=== PATIENT | female | born 1950 | race African-American/Black ===

== ENCOUNTER 2016-06-23 02:14 | Inpatient (IN) ==
[2016-06-23] MEDS ORDERED: ENOXAPARIN 100 MG/ML SYRINGE SUBCUT STA (02:25)
[2016-06-23] MEDS ORDERED: SODIUM CHLORIDE 0.9% 500 ML IV STA (02:25)
[2016-06-23] MEDS ORDERED: ONDANSETRON 4 MG/2 ML VIAL IV STA (02:25)
[2016-06-23] MEDS ORDERED: MORPHINE 2 MG/1 ML SYRINGE IV STA (02:25)
[2016-06-23] MEDS ORDERED: NITROGLYCERIN 2% OINT 1 INCH/GM PACK TOP STA (02:25)
[2016-06-23] MEDS ORDERED: ASPIRIN 325 MG TABLET PO STA (02:25)
[2016-06-23] MEDS ORDERED: ENOXAPARIN 100 MG/ML SYRINGE SUBCUT ONE (02:39)
[2016-06-23] MEDS ORDERED: MORPHINE 2 MG/1 ML SYRINGE ONE (02:39)
[2016-06-23] MEDS ORDERED: ONDANSETRON 4 MG/2 ML VIAL ONE (02:39)
[2016-06-23] MEDS ORDERED: ASPIRIN 325 MG TABLET ONE (02:39)
[2016-06-23] MEDS ORDERED: NITROGLYCERIN 2% OINT 1 INCH/GM PACK TOP ONE (02:39)
[2016-06-23 02:43] LABS: Basophils % 0.5 % (0.0-0.8); Eosinophils # 0.1 10*3/uL (0.0-0.87); Eosinophils % 2.6 % (0.00-10.9); Hematocrit 35.8 VOL% (35.7-47.0); Hemoglobin 10.9 GM/DL (12.0-16.0); Immature Granulocytes % 0.4 %; Immature Granulocytes Absolute 0.02 #; Lymphocytes # 2.2 10*3/uL (1.4-4.0); Lymphocytes % 40.6 % (21.3-54.2); Mean Corpuscular HGB Conc 30.4 GM/DL (32-36); Mean Corpuscular Hemoglobin 28 PG (27-34); Mean Platelet Volume 9.9 FL (9.6-12.0); Monocytes # 0.4 10*3/uL (0.11-0.8); Monocytes % 7.9 % (1.7-12.7); Neutrophils # 2.6 10*3/uL (1.4-7.4); Platelet Count 229 T/CUMM (130-400); Red Blood Count 3.89 MC/CUMM (3.8-5.5); Red Cell Distribution Width 12.6 % (9.3-17.3); White Blood Count 5.5 T/CUMM (4-12)
[2016-06-23 02:52] LABS: Partial Thromboplastin Time 22.2 SECS (0-40)
[2016-06-23 03:08] LABS: Calcium 9.1 MG/DL (8.5-10.1); Osmolality,Calculated 294.1 MOS/KG (273-304); Potassium 5.1 MMOL/L (3.5-5.1)
--- NOTE | 2016-06-23 03:51 | Emergency Department Note ---
Gaston Lynne Brittany, am scribing for, and in the presence of, Nehemias Carvalho MD 02:33. Deven Lynne Robert M, MD, personally performed the services described in this documentation, ascribed by Roxi Feldman in my presence, and it is both accurate and complete 351 . Arrival - Arrival Chief Complaint: Chest Pain ED Nursing Triage Note: PT ARRIVES VIA EMS WITH COMPLAINTS OF CHEST PAIN THAT HAS BEEN ONGOING SINCE SUNDAY. PT STATES THAT SHE WAS SEEN HERE FOR CHEST PAIN SUNDAY AND TOLD IT WAS GERD. STATES THAT THE PAIN RETURNED TONIGHT WHILE AT WORK. PT DENIES ANY N/V. STATES THAT SHE DOES FEEL SOB WITH THE PAIN. Mode of Arrival: Stretcher Limitations: No Limitations Source: Patient, RN Notes Reviewed Time Seen by Provider: 06/23/16 02:25 - History of Present Illness HPI Narrative: Patient is a 65 y/o black female presenting to the ED with c/o left sided chest pain that onset tonight. Patient reports that along with this chest pain she experienced some shortness of breath and at some point began to feel near syncopal. She does note a history of OK and chest pain that she has been experiencing tonight is similar to pain experienced with the previous OK. Patient reports that the only difference in this episode tonight is that she has never experienced the near syncope feeling with prior OK. 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 Patient in room is slurring her speech while giving the history. She has an oxygen saturation of 100% on room air. No other complaint/pain in the ED at this time. Allergies/Adverse Reactions: Allergies Allergy/AdvReac Type Severity Reaction Status Date / Time meperidine [From Demerol] Allergy Hallucinati Verified 06/18/16 12:36 ng promethazine [From Phenergan] Allergy Anxiety Verified 06/18/16 12:36 Home Medications: Home Medications Medication Instructions Recorded Confirmed Type Carvedilol [Coreg] 6.25 mg PO BID 09/16/15 06/23/16 History Clopidogrel [Plavix] 75 mg PO DAILY 09/16/15 06/23/16 History Exenatide [Byetta] 10 mcg SUBCUT BID 09/16/15 06/23/16 History Insulin Detemir [Levemir] 30 unit SUBCUT DAILY 09/16/15 06/23/16 History Isosorbide Dinitrate [Isordil] 40 mg PO BID 09/16/15 06/23/16 History Nitroglycerin Sl Tab [Nitrostat] 0.4 mg SL DAILY PRN 09/16/15 06/23/16 History Ranolazine [Ranexa] 1,000 mg PO BID 09/16/15 06/23/16 History Albuterol Inhaler [Proventil 2 puff INH Q6H PRN 03/29/16 06/23/16 History Inhaler] Aspirin EC Tab 325 mg PO DAILY 03/29/16 06/23/16 History Furosemide Tab [Lasix Tab] 40 mg PO DAILY PRN 03/29/16 06/23/16 History Gabapentin Cap/Tab [Neurontin 300 mg PO BEDTIME 03/29/16 06/23/16 History Cap/Tab] Lidocaine 5% Patch [Lidoderm 5% 1 patch TRANSDERM DAILY PRN 03/29/16 06/23/16 History Patch] Olmesartan/Hydrochlorothiazide 1 each PO DAILY 03/29/16 06/23/16 History [Benicar Hct 40-25 mg Tablet] Gabapentin 100 mg PO BID 06/18/16 06/23/16 History Metformin HCl 1,000 mg PO BID 06/18/16 06/23/16 History Metoclopramide Tab [Reglan Tab] 5 mg PO ACHS #40 tablet 06/18/16 06/23/16 Rx Pantoprazole Tab [Protonix Tab] 40 mg PO DAILY #30 tablet 06/18/16 06/23/16 Rx Prochlorperazine Tab [Compazine 10 mg PO QOTHER DAY PRN 06/18/16 06/23/16 History Tab] Ranitidine Tab [Zantac Tab] 150 mg PO BID 06/18/16 06/23/16 History Review of System - Review of System 12 point system: reviewed and no additional remarkable complaints except as stated - Review of System Constitutional: Absent: chills, diaphoresis, fever Eyes: Absent: vision change Head/Ears/Nose/Throat: Absent: nasal drainage, sore throat Respiratory: Present: respiratory distress Cardiovascular: Present: chest pain, syncope (near) Gastrointestinal: Absent: abdominal pain, nausea, vomiting, diarrhea, constipation Genitourinary female: Absent: dysuria, frequency, urgency Musculoskeletal: Absent: arm pain, back pain, leg pain, neck pain Skin: Absent: rash Neurological: Absent: headache Psychiatric: Absent: anxiety, depression Medical,Surgical,& Family Hx - Medical History Cardio: History of: Hypertension, OK Endocrine: History of: Diabetes Mellitus (IDDM), Dyslipidemia - Surgical History Cardiac Surgeries: Sugical HX of: Cardiac Catheterization Reproductive Surgeries: Surgical HX of;: Hysterectomy - Family History Family History: Reports;: Family Heart Disease, Family Stroke - Social History Smoking Status: Smoker, status unknown Frequency of Alcohol Use: None Type of Drug Use: None Exam Vital Signs: Vital Signs Temperature 97.9 F 06/23/16 02:14 Pulse Rate 55 L 06/23/16 03:48 Respiratory Rate 12 06/23/16 03:48 Blood Pressure 115/78 06/23/16 03:48 O2 Sat by Pulse Oximetry 100 06/23/16 03:48 - General General appearance: alert, in no apparent distress, other (slurred speech while giving history ) - Head Head exam: Present: atraumatic, normocephalic, normal inspection - Eye Eye exam: Present: normal appearance, PERRL, EOMI - ENT ENT exam: Present: normal exam, normal oropharynx - Neck Neck exam: Present: normal inspection, full ROM, trachea midline - Chest Chest inspection: Present: normal inspection, symmetric chest wall rise - Respiratory Respiratory exam: Present: normal lung sounds bilaterally, other (oxygen saturation 100% on room air). Absent: rales, rhonchi, wheezes - Cardiovascular Cardiovascular exam: Present: regular rate, normal rhythm, normal heart sounds. Absent: murmur, rubs, gallop - Abdominal Exam Abdominal exam: Present: soft, normal bowel sounds. Absent: distention, tenderness - Extremities Exam Extremities exam: Present: normal inspection - Back Exam Back exam: Present: normal inspection - Neurological Exam Neurological exam: Present: alert, oriented X3, CN II-XII intact. Absent: motor sensory deficit - Psychiatric Psychiatric exam: Present: normal affect - Skin Skin exam: Present: warm, dry Course - Consultations Consultation #1: Dr. Lopez will evaluate and admit the patient. Time: 04:06 Results - Labs CBC & BMP: 06/23/16 02:30 06/23/16 02:30 Lab Results: I have reviewed the patients labs Labs: Lab Results WBC 5.5 T/CUMM (4-12) 06/23/16 02:30 RBC 3.89 MC/CUMM (3.8-5.5) 06/23/16 02:30 Hgb 10.9 GM/DL (12.0-16.0) L 06/23/16 02:30 Hct 35.8 VOL% (35.7-47.0) 06/23/16 02:30 MCV 92.0 FL (87-102) 06/23/16 02:30 MCH 28 PG (27-34) 06/23/16 02:30 MCHC 30.4 GM/DL (32-36) L 06/23/16 02:30 RDW 12.6 % (9.3-17.3) 06/23/16 02:30 Plt Count 229 T/CUMM (130-400) 06/23/16 02:30 MPV 9.9 FL (9.6-12.0) 06/23/16 02:30 Neut % (Auto) 48.0 % (38.7-73.9) 06/23/16 02:30 Lymph % (Auto) 40.6 % (21.3-54.2) 06/23/16 02:30 [place] % (Auto) 7.9 % (1.7-12.7) 06/23/16 02:30 Eos % (Auto) 2.6 % (0.00-10.9) 06/23/16 02:30 Baso % (Auto) 0.5 % (0.0-0.8) 06/23/16 02:30 Neut # (Auto) 2.6 10*3/uL (1.4-7.4) 06/23/16 02:30 Lymph # (Auto) 2.2 10*3/uL (1.4-4.0) 06/23/16 02:30 [place] # (Auto) 0.4 10*3/uL (0.11-0.8) 06/23/16 02:30 Eos # (Auto) 0.1 10*3/uL (0.0-0.87) 06/23/16 02:30 Baso # (Auto) 0.0 10*3/uL (0.0-0.2) 06/23/16 02:30 Immature Gran % 0.4 % 04/07/17 02:30 Nucleated RBC % 0.0 /100WBC 06/23/16 02:30 Immature Gran # 0.02 # 06/23/16 02:30 Nucleated RBCs # 0.00 10*3/uL 06/23/16 02:30 INR 1.0 06/23/16 02:30 PT Patient/Control Mix 11.0 SECS 06/23/16 02:30 Circ Anticoag PTT 22.2 SECS (0-40) 06/23/16 02:30 Sodium 142 MMOL/L (136-145) 06/23/16 02:30 Potassium 5.1 MMOL/L (3.5-5.1) 06/23/16 02:30 Chloride 108 MMOL/L (98-107) H 06/23/16 02:30 Carbon Dioxide 28 MMOL/L (21-32) 06/23/16 02:30 Anion Gap 11.1 MMOL/L (5.0-15.0) 06/23/16 02:30 BUN 26 MG/DL (7-18) H 06/23/16 02:30 Creatinine 1.70 MG/DL (0.55-1.02) H 06/23/16 02:30 GFR Calculation 44 ML/MIN 06/23/16 02:30 BUN/Creatinine Ratio 15.00 RATIO (6.00-20.00) 06/23/16 02:30 Glucose 220 MG/DL (74-106) H 06/23/16 02:30 Calculated Osmolality 294.1 MOS/KG (273-304) 06/23/16 02:30 Calcium 9.1 MG/DL (8.5-10.1) 06/23/16 02:30 Troponin I < 0.015 NG/ML (0.00-0.045) 06/23/16 02:30 Lipase 300.0 U/L (73-393) 06/23/16 02:30 - EKG EKG results: interpreted by SONJA AVILES, sinus rhythm Disposition Clinical Impression: Chest pain, Diabetes, Hypertension, History of OK (myocardial infarction) Case discussed with: patient, patient's family Disposition: Still a Patient Condition: Stable Time of Disposition: 04:06
[2016-06-23] MEDS ORDERED: DEXTROSE 50% 25 GM/50 ML VIAL IV PRN ×2 (04:07→13:57)
[2016-06-23] MEDS ORDERED: DOCUSATE SODIUM 100 MG CAPSULE PO PRN (04:07)
[2016-06-23] MEDS ORDERED: ONDANSETRON 4 MG/2 ML VIAL IV PRN (04:07)
[2016-06-23] MEDS ORDERED: MAGNESIUM SULF RIDER 2 GM in PREMIX 1 EACH IV PRN ×2 (04:07→11:49)
[2016-06-23] MEDS ORDERED: MORPHINE 2 MG/1 ML SYRINGE IV PRN (04:07)
[2016-06-23] MEDS ORDERED: MAGNESIUM SULF RIDER 4 GM in PREMIX 1 EACH IV PRN (04:07)
[2016-06-23] MEDS ORDERED: GLUCAGON 1 MG VIAL IM PRN ×2 (04:07→13:57)
[2016-06-23] MEDS ORDERED: POTASSIUM CHLORIDE 20 MEQ TABLET PO PRN (04:07)
--- NOTE | 2016-06-23 04:11 | EKG Report ---
Stationary ECG Study 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
--- NOTE | 2016-06-23 07:29 | XRay Report ---
Referring Physician: Nehemias Carvalho Exam: XR chest 1V portable Date: June 23, 2016 at 2:30 AM Reason: Chest pain Comparison: Chest one view portable June 18, 2016 Findings: The cardiac silhouette is again mildly enlarged, and there is mild elevation of the right hemidiaphragm. The interstitial markings are prominent bilaterally. This could be related to the poor inspiratory depth or minimal pulmonary edema. There is also minimal atelectasis at the right lung base. No definite pleural fluid is identified. No acute osseous process is seen. Impression: 1. Mild cardiomegaly. 2. The interstitial markings are prominent bilaterally. This could be related to the poor inspiratory depth or minimal pulmonary edema. There is also minimal atelectasis at the right lung base. PROCEDURE INTERPRETED AT [facility] DEPARTMENT OF RADIOLOGY Final Report Signed by: Dr. Eagle Vidal
[2016-06-23 08:39] LABS: Troponin I Only < 0.015 NG/ML (0.00-0.045)
--- NOTE | 2016-06-23 08:39 | Cardiology History & Physical ---
Assessment and Plan - Time spent with patient Time spent with patient: Greater than 30 minutes (due to assessment, plan, and documentation) (1) Chest pain Status: Acute Assessment and plan: 65 y/o BF presents c c/o SOB and chest discomfort. Reports symptoms feel similar to previous RI symptoms. At that time, she did have atypical features of CP. Hx of severe diffuse CAD with multiple aneurysms, not felt to be a surgical candidate. Also has hx of HTN, DM, HLD, MARY KAY, former smoker, obesity. She is already on medical therapy for her CAD to include beta landon, Ranexa, ARB, nitrates, ASA. Discussed with Dr. Garcia and Dr. Lopez. We will not proceed with stress testing at this time given her history of CAD. Will try to maximize medical therapy. Dr. Lopez will review previous films to evaluate for any potential intervention. -Continue home medications. She is currently on the maximum dose for Ranexa and Isordil. Heart rate will not allow for further increase of beta landon at this time. -Will obtain echocardiogram. -Continue to cycle cardiac biomarkers and EKGs and monitor for changes. -NPO for now until pharmacy informatics manager is able to review old films. -Continue CPAP nightly. -Monitor CBC, BMP, Mg daily. -Check D-dimer and lipid profile today. Patient reports a previous statin intolerance. -Will await further recommendations from Dr. Garcia & Dr. Lopez. Current Visit: Yes (2) Shortness of breath Status: Acute Current Visit: Yes (3) CAD (coronary artery disease) Status: Chronic Current Visit: Yes (4) Dyslipidemia Status: Chronic Current Visit: Yes (5) GERD (gastroesophageal reflux disease) Status: Chronic Current Visit: Yes (6) Obesity Status: Chronic Current Visit: Yes (7) Former smoker Status: Chronic Current Visit: Yes (8) History of RI (myocardial infarction) Status: Chronic Current Visit: Yes (9) Diabetes Status: Chronic Current Visit: Yes (10) Obstructive sleep apnea Status: Chronic Current Visit: Yes History of Present Illness Chief complaint: chest pain History of present illness: SKATE HOP: DR. SIMMONS Ms. Wilkinson is a 65 year old female who is followed by Dr. Simmons. She has a history of severe diffuse coronary artery disease, hypertension, dyslipidemia, diabetes mellitus, obstructive sleep apnea, former tobacco use, gastroesophageal reflux disease, and obesity. She previously had non-Q wave RI on 08/21/09 and underwent angiographic thrombectomy. She was evaluated by Dr. Joya following her heart catheterization on 01/16/13 and failed to be a candidate for surgery at that time. Her last heart catheterization was 05/21/14 and revealed severe diffuse CAD with multiple aneurysmal segments with ejection fraction 55%. Medical therapy was recommended at that time. 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 She presented to the emergency department shortly after midnight with complaints of chest discomfort and shortness of breath that began after she arrived at work, around 2300. She tells me she had begun making rounds when she began to feel like she had indigestion and took some Mylanta. The feeling did not pass, so she took a second dose. Her discomfort intensified and she tells me that she began to feel as if she couldn't take a full breath. She admits at this point, she became quite anxious and called her to come and take her to the hospital. Shortly after speaking to her , she changed her mind and the ambulance was called. She tells me upon being picked up by the ambulance, her SpO2 was 98% but she still felt as if she couldn't breathe. She rates her discomfort as a 10/10, but after administration of Aspirin and Morphine, it went to an 8/10 and she is now currently pain free. Her discomfort was midsternal but did not radiate to her neck, jaw, or arms. She can identify no other aggravating or alleviating factors. She does state that she feels similar to how she did when she had her previous RI. She still reports feeling as if she cannot take a deep breath. She also reports lightheadedness and a near syncopal sensation. She denies palpitations, dizziness, diaphoresis, nausea , or vomiting. Ms. Wilkinson reports she has felt more fatigued in the past several weeks, but attributed that to not being compliant with her CPAP machine, which she has started back using. She does report an isolated incidence of feeling "hot" in [place] this past Sunday. This was accompanied by a feeling of "smothering" and SOB which eventually passed. She reports prior to these two incidences, she has been able to perform her duties at home and at work without difficulty. Her EKG is unremarkable. Her first set of cardiac biomarkers was negative. BNP 33. Creatinine 1.7 with GFR 44; this appears to be around her baseline recently. She is not currently on statin therapy. She reports she was previously placed on statin therapy and had severe myalgias and stopped this medication on her own. We will recheck lipid profile. May consider use of low dose crestor if unable to tolerate other statins. Will further discuss with Dr. Garcia and Dr. Lopez and await their recommendations. Home Medications Medication Instructions Recorded Confirmed Type Carvedilol [Coreg] 6.25 mg PO BID 09/16/15 06/23/16 History Clopidogrel [Plavix] 75 mg PO DAILY 09/16/15 06/23/16 History Exenatide [Byetta] 10 mcg SUBCUT BID 09/16/15 06/23/16 History Insulin Detemir [Levemir] 30 unit SUBCUT DAILY 09/16/15 06/23/16 History Isosorbide Dinitrate [Isordil] 40 mg PO BID 09/16/15 06/23/16 History Nitroglycerin Sl Tab [Nitrostat] 0.4 mg SL DAILY PRN 09/16/15 06/23/16 History Ranolazine [Ranexa] 1,000 mg PO BID 09/16/15 06/23/16 History Albuterol Inhaler [Proventil 2 puff INH Q6H PRN 03/29/16 06/23/16 History Inhaler] Aspirin EC Tab 325 mg PO DAILY 03/29/16 06/23/16 History Furosemide Tab [Lasix Tab] 40 mg PO DAILY PRN 03/29/16 06/23/16 History Gabapentin Cap/Tab [Neurontin 300 mg PO BEDTIME 03/29/16 06/23/16 History Cap/Tab] Lidocaine 5% Patch [Lidoderm 5% 1 patch TRANSDERM DAILY PRN 03/29/16 06/23/16 History Patch] Olmesartan/Hydrochlorothiazide 1 each PO DAILY 03/29/16 06/23/16 History [Benicar Hct 40-25 mg Tablet] Gabapentin 100 mg PO BID 06/18/16 06/23/16 History Metformin HCl 1,000 mg PO BID 06/18/16 06/23/16 History Metoclopramide Tab [Reglan Tab] 5 mg PO ACHS #40 tablet 06/18/16 06/23/16 Rx Pantoprazole Tab [Protonix Tab] 40 mg PO DAILY #30 tablet 06/18/16 06/23/16 Rx Prochlorperazine Tab [Compazine 10 mg PO QOTHER DAY PRN 06/18/16 06/23/16 History Tab] Ranitidine Tab [Zantac Tab] 150 mg PO BID 06/18/16 06/23/16 History Allergies Allergy/AdvReac Type Severity Reaction Status Date / Time meperidine [From Demerol] Allergy Hallucinati Verified 06/18/16 12:36 ng promethazine [From Phenergan] Allergy Anxiety Verified 06/18/16 12:36 Review of systems: - Constitutional: Present: fatigue, As per HPI. Absent: anorexia, chills, daytime sleepiness, excessive sweating, fever(s), frequent falls, headache(s), increased appetite, lethargy, malaise, night sweats, stops breathing during sleep, weakness, weight gain, weight loss. - EENT Eyes: Present: As per HPI. Absent: blurry vision, diplopia, loss of vision Ears: Present: decreased hearing, As per HPI. Absent: ear discharge, ear pain Nose, mouth and throat: Present: As per HPI. Absent: dysphagia, epistaxis, headache(s), hoarseness, lip swelling, nasal congestion, neck mass, neck pain, sinus pressure, sore throat, throat swelling, tongue swelling, vertigo - Cardiovascular: Present: chest pain at rest, chest pain with activity, dyspnea , dyspnea on exertion, lightheadedness, as per HPI. Absent: edema, claudication , diaphoresis, radiating jaw, neck or arm pain, orthopnea, palpitations, PND - Respiratory: Present: dyspnea, dyspnea on exertion, as per HPI. Absent: cough , hemoptysis, wheezing, snoring, pain on inspiration - Gastrointestinal: Present:constipation, heartburn, As per HPI. Absent: abdominal pain, bloating, change in bowel habits, diarrhea, hematemesis, hematochezia, loose stools, melena, nausea, vomiting - Genitourinary: Present: As per HPI. Absent: difficulty urinating, dysuria, flank pain, hematuria, nocturia, urinary frequency, urinary incontinence - Musculoskeletal: Present: As per HPI. Absent: arthralgias, back pain, joint swelling, limited range of motion, muscle cramps, muscle weakness, myalgias - Neurological: Present: near syncope, As per HPI. Absent: abnormal gait, abnormal speech, behavioral changes, confusion, convulsions, disequilibrium, dizziness, focal weakness, frequent falls, headache(s), memory loss, numbness, paresthesias, radicular pain, tremor(s) - Psychiatric: Present: anxiety, As per HPI. Absent: confusion, depression, panic attacks - Endocrine: Present: fatigue, As per HPI. Absent: cold intolerance, heat intolerance, polydipsia, polyphagia - Hematologic/Lymphatic: Present: As per HPI. Absent: easy bleeding, easy bruising, lymphadenopathy Medical,Surgical,& Family Hx - Medical History Cardio: History of: CAD (severe diffuse CAD), Hypertension, RI Endocrine: History of: Diabetes Mellitus (IDDM), Dyslipidemia - Surgical History Cardiac Surgeries: Sugical HX of: Cardiac Catheterization Reproductive Surgeries: Surgical HX of;: Hysterectomy - Family History Family History: Reports;: Family Heart Disease, Family Stroke - Social History Smoking Status: Former smoker (quit in 2001) Frequency of Alcohol Use: None Type of Drug Use: None Marital Status: Lives With:: Spouse Functional capacity: independent ambulation Cardiology Physical Exam - Constitutional Vitals: Vital Signs Temp Pulse Resp BP Pulse Ox 97.3 F L 63 20 139/99 98 06/23/16 05:18 06/23/16 05:18 06/23/16 05:18 06/23/16 05:18 06/23/16 05:18 Intake and Output 06/22/16 06/23/16 06/23/16 22:59 06:59 14:59 Other: Weight 220 lb Exam: General appearance: Pleasant and cooperative. Normal weight, no acute distress. - Head Head exam: Present: normal inspection, normocephalic, atraumatic. Absent: hematoma, laceration - Eye Eye exam: Present: EOMI. Absent: conjunctival injection, nystagmus, periorbital swelling, scleral icterus, laceration to eyelids Pupils: Present: PERRL. Absent: constricted, dilated, fixed, irregular, unequal - ENT ENT exam: Present: normal exam, normal external ear exam - Neck Neck exam: Present: normal inspection. Absent: lymphadenopathy, meningismus, tenderness, thyromegaly - Respiratory Respiratory exam: Present: clear to auscultation bilaterally. Absent: accessory muscle use, chest wall tenderness, no rales, rhonchi, or wheezes. O2 via NBP. - Cardiovascular Cardiovascular exam: Present: regular rate and rhythm. Absent: carotid bruit, gallop, JVD, rubs, murmur - GI/Abdominal GI/Abdominal exam: Present: normal bowel sounds, soft. Absent: distended, firm , guarding, hernia, mass, tenderness, rebound. - Extremities Exam Extremities exam: Present: normal inspection, normal capillary refill. Upper extremity pulses 2+. Lower extremity pulses 2+. Absent: calf tenderness, edema - Back Exam Back exam: Present: normal inspection. Absent: muscle spasm, vertebral tenderness - Neurological Exam Neurological exam: Present: alert, oriented X3, grossly intact without resting or essential tremor - Psychiatric Psychiatric exam: Present: normal affect, normal mood - Skin Skin exam: Present: normal color, warm, dry, intact. Absent: cyanosis, diaphoretic, rash, urticaria Result/EKG - Labs CBC & BMP: 06/23/16 02:30 06/23/16 02:30 Lab Results: I have reviewed the past 24 hour labs - EKG EKG results: interpreted by me, sinus rhythm
[2016-06-23] MEDS ORDERED: ALBUTEROL 2.5 MG/3 ML NEB RESP TX PRN (09:06)
[2016-06-23] MEDS ORDERED: NITROGLYCERIN SL 0.4 MG TABLET SL PRN (09:06)
[2016-06-23] MEDS ORDERED: PROCHLORPERAZINE 10 MG TABLET PO PRN (09:06)
[2016-06-23 10:16] LABS: Risk Ratio 2.61
[2016-06-23 10:44] LABS: Free T4 (Free Thyroxine) 1.15 NG/DL (0.76-1.46); Thyroid Stimulating Hormone 2.75 uIU/ml (0.358-3.74)
--- NOTE | 2016-06-23 10:46 | EKG Report ---
Stationary ECG Study [facility] Test Date: 06/23/2016 7:39:50 AM Pat Name: PERLA TERRAZAS Department: Room: 264 Gender: F Provider Education Specialist: : 1950 Requested by: Nehemias Carvalho Order Number: [id number] Reading MD: SORCATES HASSAN Intervals [place] Rate: 58 P: 49 [place]: 186 QRS: -15 QRSD: 105 T: 44 QT: 429 QTc: 425 Interpretive Statements SINUS RHYTHM Electronically Signed On 06-26-16 14:37:41 CDT by SOCRATES HASSAN [id number]
[2016-06-23] MEDS ORDERED: diphenhydrAMINE CAP 25 MG CAPSULE PO ONE (11:49)
[2016-06-23] MEDS ORDERED: POTASSIUM CHLORIDE RIDER 10 MEQ in PREMIX 1 EACH IV PRN (11:49)
[2016-06-23] MEDS ORDERED: SODIUM CHLORIDE 0.9% 1,000 ML IV SCH ×2 (11:49→14:13)
[2016-06-23] MEDS ORDERED: DIAZEPAM 5 MG TABLET PO ONE (11:49)
--- NOTE | 2016-06-23 12:17 | EKG Report ---
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
[2016-06-23] MEDS: OLMESARTAN 20 MG TABLET PO SCH (12:23)
[2016-06-23] MEDS: RANOLAZINE 500 MG TABLET PO SCH ×2 (12:23→21:59)
[2016-06-23] MEDS: CLOPIDOGREL 75 MG TABLET PO SCH (12:24)
[2016-06-23] MEDS: GABAPENTIN 100 MG CAPSULE PO SCH ×3 (12:24→22:00)
[2016-06-23] MEDS: hydroCHLOROthiazide 25 MG TABLET PO SCH (12:25)
[2016-06-23] MEDS: CARVEDILOL 6.25 MG TABLET PO SCH ×2 (12:25→21:59)
[2016-06-23] MEDS: ASPIRIN EC 325 MG TABLET PO SCH (12:25)
[2016-06-23] MEDS: PANTOPRAZOLE 40 MG TABLET PO SCH (12:25)
[2016-06-23] MEDS: FAMOTIDINE 20 MG TABLET PO SCH ×2 (12:26→22:00)
[2016-06-23] MEDS: METOCLOPRAMIDE 5 MG TABLET PO SCH ×4 (12:26→22:00)
[2016-06-23] MEDS ORDERED: LIDOCAINE 1% 20 ML VIAL ONE (12:47)
--- NOTE | 2016-06-23 12:55 | History and Physical Update ---
Sedation H&P Update - History and Physical H&P was reviewed, the patient examined and there: are no changes in the patients condition since last H&P was completed. - Dictation Physical: refer to H&P completed by admitting physician - Physical Exam Mental Status: alert and oriented Heart: regular rate and rhythm Lung: clear to auscultation Abdomen: within normal limits Vitals: within normal limits History and Physical Changes: Both femoral arteries are 4+. Foot arteries are 3+. - Sedation Plan for Sedation: minimal Patient Consent: Procedure disscussed with patient and patinet has consented., Risks and benefits were discussed with patient,including infection,, bleeding, injury to surrounding structures, seizure, temporary nerve, Patient understands and accepts potential risks/benefits and agrees to (Left heart cath and possible PTCA or stent were discussed with the patient. The risk of the procedure include but are not limited to a small risk of injury to the vessel, abnormal heart rhythm, stroke, heart attack, need for emergent surgery, contrast reaction, restenosis, or . The patient voices understanding, agrees with the plan, and desires to proceed with the heart catheterization.), proceed. ASA Class: II Airway Assessment: Class II: Soft palate, uvula, fauces visible
[2016-06-23] MEDS ORDERED: HYDROmorphone 2 MG/1 ML VIAL ONE (13:00)
[2016-06-23] MEDS ORDERED: MIDAZOLAM 2 MG/2 ML VIAL ONE (13:02)
[2016-06-23] MEDS ORDERED: HEPARIN 5,000 UNIT/1 ML VIAL ONE (13:03)
[2016-06-23 13:25] LABS: Troponin I Only < 0.015 NG/ML (0.00-0.045)
--- NOTE | 2016-06-23 14:12 | Cardiology Operative Report ---
Date of Procedure:: 06/23/16 Post-op diagnosis: same (65-year-old woman with known aneurysmal coronary disease. She is diabetic. She presents with midline chest pain suggestive of unstable angina. She is referred for diagnostic catheterization and possible intervention.) Procedure: Date of procedure: 06/23/16 Procedure Preformed: Left heart cath Coronary angiography Left ventriculography Angiogram of the right femoral artery Angio-Seal of the right femoral artery-successful Surgeon / Physician: Stef Lopez Animal Surgeon: Fadia Landry Post-op diagnosis: same (65-year-old woman with known aneurysmal coronary disease. She is diabetic. She presents with midline chest pain suggestive of unstable angina. She is referred for diagnostic catheterization and possible intervention.) procedure: The patient was prepped and draped in usual manner. Entered the right femoral artery via the Seldinger technique. I used a sheath and then used a JL4 and engaged left coronary. Multiple views were taken. I then exchanged for a JR4. Multiple views of the right coronary were taken. I then exchanged for an angled pigtail. I crossed the valve. Left ventricular end-diastolic pressures measured. Left ventriculography was done. Left ventricle pullback was done. The catheters were then removed from the patient. Please see the cath data sheets for the details of catheters used. Complications: None Hemodynamic data: LVEDP was 35-40 mmHg. Angiographic data: The left main coronary was large, aneurysmal, and had minimal luminal irregularities. The left anterior descending artery was large, aneurysmal, and there were multiple moderate areas of narrowing. The distal LAD had significant, greater than 70% to 80% narrowing. However at this point it was a small vessel. s. The left circumflex system was moderate to large, aneurysmal vessel with moderate disease. In the distal portion of an obtuse marginal there was significant disease The right coronary artery was large in size, dominant vessel with the PDA. It was aneurysmal. The distal posterior lateral branch was small but had significant, 78% narrowing. It was too small to intervene upon. EDWARDS left ventriculography revealed moderate global global/regional left ventricular systolic dysfunction. Overall ejection fraction was about 40 %. There is no significant mitral regurgitation. Angiogram of the right femoral artery revealed the puncture site to be in a large vessel, above the bifurcation. It was suitable for Angio-Seal. Findings: Impression: Significant, obstructive coronary disease involving distal obtuse marginal circumflex, the distal LAD, and the distal right coronary artery---in these areas, the vessel was too small to intervene upon-probably 1-1.5 mm diameter vessels Moderate disease in other vessels. Aneurysmal disease throughout all 3 vessels-it makes me think of Kawasaki's disease in the pediatric age group-made this is an adult form of this disease-? A proximal diagonal had the next most severe lesion--this lesion it appeared to be 70 or 80% but the diameter of the residual vessel was probably 1 1/2 mm because there is aneurysmal disease around that lesion-thought to not be a flow- limiting lesion Moderate global left ventricular systolic dysfunction. Overall left ventricular ejection fraction about 40%. Severe elevation of LVEDP-35-40 mmHg, this was measured twice, even after receiving the transducer, to make sure it was accurate Angiogram the right coronary-by follow-through from the LV gram Angio-Seal right femoral artery-successful Plan/recommendations: The patient will have risk factors optimized. Based on his angiogram, fixed, obstructive disease is distal. It could be causing her symptoms. There also could be a GI cause could be related to the high LVEDP. I will defer to Dr. Linder about treatment. However, one could plan will be to treat for all 3. The patient is on Plavix and aspirin. Rate is slow. I suspect she is on a beta-landon. Her creatinine is about 1.7. If she could tolerate it, she could be on ARB or FREDERIC inhibitor and possibly spironolactone, it might help the high LVEDP. Also, judicious use of a diuretic might help. The possibility that the patient has sleep apnea contributing to symptoms could be considered. The patient will be on antiplatelet medications to include aspirin indefinitely and Plavix . Follow-up will be scheduled. Addenda: I saw the patient post-cath. the groin puncture site and distal pulse are stable. vital signs are stable and the patient will be observed closely overnight. Specimens: none sent Estimated blood loss: minimal Condition: stable Anesthesia: local, conscious sedation Disposition: floor Additional CC's: Devan Simmons Anesthesia: local, minimal conscious sedation Surgeon / Physician: Stef Lopez Animal Surgeon: other Estimated blood loss: minimal Specimens: none sent Condition: stable Disposition: floor
[2016-06-23] MEDS: INSULIN REGULAR 100 UNIT/ML SUBCUT SCH ×2 (16:35→22:01)
[2016-06-23 21:13] LABS: Troponin I Only < 0.015 NG/ML (0.00-0.045)
[2016-06-23] MEDS: ISOSORBIDE DINITRATE SR 40 MG TABLET PO SCH (21:59)
[2016-06-23] MEDS: GABAPENTIN 300 MG CAPSULE PO SCH (22:00)
[2016-06-24 05:58] LABS: Basophils % 0.5 % (0.0-0.8); Eosinophils # 0.2 10*3/uL (0.0-0.87); Eosinophils % 4.9 % (0.00-10.9); Hematocrit 32.5 VOL% (35.7-47.0); Hemoglobin 10.3 GM/DL (12.0-16.0); Immature Granulocytes % 0.2 %; Immature Granulocytes Absolute 0.01 #; Lymphocytes % 49.9 % (21.3-54.2); Mean Corpuscular HGB Conc 31.7 GM/DL (32-36); Mean Corpuscular Hemoglobin 29 PG (27-34); Mean Corpuscular Volume 90.3 FL (87-102); Mean Platelet Volume 10.2 FL (9.6-12.0); Monocytes # 0.4 10*3/uL (0.11-0.8); Monocytes % 10.6 % (1.7-12.7); Neutrophils # 1.4 10*3/uL (1.4-7.4); Neutrophils % 33.9 % (38.7-73.9); Platelet Count 219 T/CUMM (130-400); Red Cell Distribution Width 12.5 % (9.3-17.3); White Blood Count 4.1 T/CUMM (4-12)
[2016-06-24 06:26] LABS: Calcium 8.6 MG/DL (8.5-10.1); Magnesium 2.2 MG/DL (1.8-2.4); Osmolality,Calculated 286.5 MOS/KG (273-304); Potassium 4.9 MMOL/L (3.5-5.1)
[2016-06-24 06:51] LABS: Eosinophils 4 % (0-10); Hypochromasia 1+; Lymphocytes 53 % (20-55); Microcytosis 1+; Platelet Estimate Adequate; Segmented Neutrophils 33 % (50-85); Total Cells Counted 100
--- NOTE | 2016-06-24 07:17 | EKG Report ---
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
[2016-06-24] MEDS: METOCLOPRAMIDE 5 MG TABLET PO SCH ×4 (07:35→21:51)
[2016-06-24] MEDS ORDERED: diphenhydrAMINE CAP 50 MG CAPSULE PO ONE (08:38)
[2016-06-24] MEDS: hydroCHLOROthiazide 25 MG TABLET PO SCH (09:14)
[2016-06-24] MEDS: ASPIRIN EC 325 MG TABLET PO SCH (09:16)
[2016-06-24] MEDS: OLMESARTAN 20 MG TABLET PO SCH (09:17)
[2016-06-24] MEDS: CLOPIDOGREL 75 MG TABLET PO SCH (09:17)
[2016-06-24] MEDS: CARVEDILOL 6.25 MG TABLET PO SCH ×2 (09:18→21:50)
[2016-06-24] MEDS: RANOLAZINE 500 MG TABLET PO SCH ×2 (09:18→21:50)
[2016-06-24] MEDS: PANTOPRAZOLE 40 MG TABLET PO SCH (09:18)
[2016-06-24] MEDS: ISOSORBIDE DINITRATE SR 40 MG TABLET PO SCH ×2 (09:21→21:50)
[2016-06-24] MEDS: INSULIN REGULAR 100 UNIT/ML SUBCUT SCH ×4 (09:25→21:54)
[2016-06-24] MEDS: FAMOTIDINE 20 MG TABLET PO SCH ×3 (09:26→21:54)
[2016-06-24] MEDS: INSULIN GLARGINE 100 UNIT/ML SUBCUT SCH (09:26)
[2016-06-24] MEDS: GABAPENTIN 100 MG CAPSULE PO SCH ×2 (09:26→21:50)
[2016-06-24] MEDS ORDERED: FAMOTIDINE 20 MG TABLET PO ONE (11:57)
[2016-06-24] MEDS ORDERED: diphenhydrAMINE CAP 50 MG CAPSULE PO SCH (13:00)
--- NOTE | 2016-06-24 15:56 | Event Note ---
Called to see the patient because of itching and maculopapular rash on her back and her anterior body. It appears to be a contrast reaction. Benadryl 50 mg p.o. now and 4 times daily has been given. It is helped the itching. This is likely be self-limited. If it bothers her more we can give steroids. At this point, it is mild enough that I would not give it because of the side effects of the steroids. I did discuss with the patient and her that she should be considered allergic to contrast [although it could be something else ] , and should be premedicated prior to any future exposure of contrast. The above was discussed with the patient and her . They voiced understanding and agree with the plan.
--- NOTE | 2016-06-24 16:09 | Cardiology Progress Note ---
Assessment and Plan - Time spent with patient Time spent with patient: Greater than 30 minutes (1) Chest pain Status: Acute Assessment and plan: From the heart cath, her chest pain could be from distal, small vessel CAD, high LVEDP, or it could be GI related Plan/recommendation: Cautiously add a low-dose of FREDERIC inhibitor, Capoten 6.25 mg p.o. twice daily Watch renal function and potassium with this FREDERIC inhibitor Cautiously add a low-dose of spironolactone, 6.25 mg p.o. now and twice daily Cautiously add low-dose of furosemide, 20 mg p.o. now and daily Treat for presumed contrast reaction-Benadryl 50 mg p.o. now and 4 times daily as needed for itching or rash --it seems to be mild-- is likely be self- limited. If it bothers her more we can give steroids. At this point, it is mild enough that I would not give it because of the side effects of the steroids. I did discuss with the patient and her that she should be considered allergic to contrast [although it could be something else ], and should be premedicated prior to any future exposure of contrast. The above was discussed with the patient and her . They voiced understanding and agree with the plan. Current Visit: Yes (2) Shortness of breath Status: Acute Current Visit: Yes (3) CAD (coronary artery disease) Status: Chronic Current Visit: Yes (4) Diabetes Status: Chronic Current Visit: Yes (5) Dyslipidemia Status: Chronic Current Visit: Yes (6) Former smoker Status: Chronic Current Visit: Yes (7) GERD (gastroesophageal reflux disease) Status: Chronic Current Visit: Yes (8) Obesity Status: Chronic Current Visit: Yes (9) Obstructive sleep apnea Status: Chronic Current Visit: Yes (10) Systolic dysfunction, left ventricle Problem details: LVEF about 40% with mild LV enlargement on 06/24/15 at cath Status: Acute Current Visit: Yes (11) Left ventricular diastolic dysfunction Problem details: LVEDP is about 35-40 at heart cath of 06/24/15 Status: Acute Current Visit: Yes Cardiology - PN: Subj Interval history: Called to see the patient because of itching and maculopapular rash on her back and her anterior body. It appears to be a contrast reaction. Benadryl 50 mg p.o. now and 4 times daily has been given. It is helped the itching. No more chest pain Exam (Progress Note) - Constitutional Vitals: Period Temp Pulse Resp BP Sys/Dorado Pulse Ox Last 24 Hr 97.3 F-98.6 F 59-67 16-18 124-184/76-109 98-100 Exam: HEENT: Pupils equal, reactive to light and accommodation Neck: NoJVD or bruit Lungs clear to auscultation Heart: Regular rhythm rate with normal S1 and S2. Apical S4 Abdomen: No hepatosplenomegaly Spine/extremities: No clubbing, cyanosis, or edema Neuro: Nonfocal Psych: No depression or anxiety Right groin puncture site has some bruising. Distal pulses normal. Result/EKG - Labs CBC & BMP: 06/24/16 05:13 06/24/16 05:13 Lab Results: I have reviewed the past 24 hour labs Labs: Laboratory Results - last 24 hr 06/23/16 06/23/16 06/23/16 16:20 19:53 20:13 WBC RBC Hgb Hct MCV MCH MCHC RDW Plt Count MPV Neut % (Auto) Lymph % (Auto) Harper % (Auto) Eos % (Auto) Baso % (Auto) Neut # (Auto) Lymph # (Auto) Harper # (Auto) Eos # (Auto) Baso # (Auto) Total Counted Immature Gran % Nucleated RBC % Immature Gran # Segmented Neutrophils Lymphocytes Monocytes Eosinophils Basophils Nucleated RBCs # Platelet Estimate Hypochromasia Microcytosis Sodium Potassium Chloride Carbon Dioxide Anion Gap BUN Creatinine GFR Calculation BUN/Creatinine Ratio Glucose POC Glucose 95 227 H Calculated Osmolality Calcium Magnesium Total Creatine Kinase 99 D CK-MB (CK-2) < 1.0 Troponin I < 0.015 06/24/16 06/24/16 06/24/16 05:13 05:13 07:18 WBC 4.1 RBC 3.60 L Hgb 10.3 L Hct 32.5 L MCV 90.3 MCH 29 MCHC 31.7 L RDW 12.5 Plt Count 219 MPV 10.2 Neut % (Auto) 33.9 L Lymph % (Auto) 49.9 Harper % (Auto) 10.6 Eos % (Auto) 4.9 Baso % (Auto) 0.5 Neut # (Auto) 1.4 Lymph # (Auto) 2.0 Harper # (Auto) 0.4 Eos # (Auto) 0.2 Baso # (Auto) 0.0 Total Counted 100 Immature Gran % 0.2 Nucleated RBC % 0.0 Immature Gran # 0.01 Segmented Neutrophils 33 L Lymphocytes 53 Monocytes 9 Eosinophils 4 Basophils 1.0 H Nucleated RBCs # 0.00 Platelet Estimate Adequate Hypochromasia 1+ Microcytosis 1+ Sodium 139 Potassium 4.9 Chloride 105 Carbon Dioxide 28 Anion Gap 10.9 BUN 22 H Creatinine 1.40 H GFR Calculation 55 BUN/Creatinine Ratio 15.00 Glucose 224 H POC Glucose 187 H Calculated Osmolality 286.5 Calcium 8.6 Magnesium 2.2 Total Creatine Kinase CK-MB (CK-2) Troponin I 06/24/16 06/24/16 12:03 15:35 WBC RBC Hgb Hct MCV MCH MCHC RDW Plt Count MPV Neut % (Auto) Lymph % (Auto) Harper % (Auto) Eos % (Auto) Baso % (Auto) Neut # (Auto) Lymph # (Auto) Harper # (Auto) Eos # (Auto) Baso # (Auto) Total Counted Immature Gran % Nucleated RBC % Immature Gran # Segmented Neutrophils Lymphocytes Monocytes Eosinophils Basophils Nucleated RBCs # Platelet Estimate Hypochromasia Microcytosis Sodium Potassium Chloride Carbon Dioxide Anion Gap BUN Creatinine GFR Calculation BUN/Creatinine Ratio Glucose POC Glucose 315 H 286 H Calculated Osmolality Calcium Magnesium Total Creatine Kinase CK-MB (CK-2) Troponin I Quality Measures - VTE Contraindication to Pharmacological VTE Prophylaxis: High Risk of Bleeding
[2016-06-24] MEDS: diphenhydrAMINE CAP 50 MG CAPSULE PO PRN ×2 (16:23→21:50)
[2016-06-24] MEDS: SPIRONOLACTONE 25 MG TABLET PO SCH ×2 (17:02→21:49)
[2016-06-24] MEDS: CAPTOPRIL 6.25 MG TABLET PO SCH ×2 (17:12→21:50)
[2016-06-24] MEDS: FUROSEMIDE 20 MG TABLET PO SCH (17:13)
[2016-06-24] MEDS: GABAPENTIN 300 MG CAPSULE PO SCH (21:51)
[2016-06-25] MEDS ORDERED: ACETAMINOPHEN 325 MG TABLET PO PRN (01:19)
[2016-06-25] MEDS ORDERED: HYDROmorphone 2 MG/1 ML VIAL IV PRN (01:21)
[2016-06-25 04:54] LABS: Calcium 9.1 MG/DL (8.5-10.1); Osmolality,Calculated 285.3 MOS/KG (273-304); Potassium 4.7 MMOL/L (3.5-5.1)
[2016-06-25 06:02] LABS: Albumin 3.3 G/DL (3.4-5.0); Bilirubin,Total 0.6 MG/DL (0.2-1.0); Osmolality,Calculated 282.4 MOS/KG (273-304); Potassium 4.7 MMOL/L (3.5-5.1); Total Protein 7.1 G/DL (6.4-8.3)
[2016-06-25] MEDS: METOCLOPRAMIDE 5 MG TABLET PO SCH ×4 (07:51→21:50)
[2016-06-25] MEDS: diphenhydrAMINE CAP 50 MG CAPSULE PO PRN ×3 (08:03→21:51)
[2016-06-25] MEDS: RANOLAZINE 500 MG TABLET PO SCH ×2 (10:10→21:51)
[2016-06-25] MEDS: FAMOTIDINE 20 MG TABLET PO SCH ×4 (10:10→21:51)
[2016-06-25] MEDS: OLMESARTAN 20 MG TABLET PO SCH (10:10)
[2016-06-25] MEDS: PANTOPRAZOLE 40 MG TABLET PO SCH (10:10)
[2016-06-25] MEDS: CARVEDILOL 6.25 MG TABLET PO SCH ×2 (10:11→21:52)
[2016-06-25] MEDS: ASPIRIN EC 325 MG TABLET PO SCH (10:11)
[2016-06-25] MEDS: CLOPIDOGREL 75 MG TABLET PO SCH (10:11)
[2016-06-25] MEDS: hydroCHLOROthiazide 25 MG TABLET PO SCH (10:11)
[2016-06-25] MEDS: GABAPENTIN 100 MG CAPSULE PO SCH ×2 (10:42→21:50)
[2016-06-25] MEDS: INSULIN REGULAR 100 UNIT/ML SUBCUT SCH ×4 (10:56→21:47)
[2016-06-25] MEDS ORDERED: methylPREDNISolone SOD SUC 125 MG/2 ML VIAL IV ONE (10:58)
[2016-06-25] MEDS: CAPTOPRIL 6.25 MG TABLET PO SCH ×2 (11:17→21:52)
[2016-06-25] MEDS: SPIRONOLACTONE 25 MG TABLET PO SCH ×2 (11:17→21:52)
[2016-06-25] MEDS: INSULIN GLARGINE 100 UNIT/ML SUBCUT SCH ×3 (11:18→18:41)
[2016-06-25] MEDS: ISOSORBIDE DINITRATE SR 40 MG TABLET PO SCH ×2 (11:23→21:52)
[2016-06-25] MEDS: FUROSEMIDE 20 MG TABLET PO SCH (11:24)
--- NOTE | 2016-06-25 19:22 | Cardiology Progress Note ---
Assessment and Plan (1) Chest pain Status: Acute Assessment and plan: From the heart cath, her chest pain could be from distal, small vessel CAD, high LVEDP, or it could be GI related Plan/recommendation: Cautiously add a low-dose of FREDERIC inhibitor, Capoten 6.25 mg p.o. twice daily Watch renal function and potassium with this FREDERIC inhibitor Cautiously add a low-dose of spironolactone, 6.25 mg p.o. now and twice daily Cautiously add low-dose of furosemide, 20 mg p.o. now and daily Treat for presumed contrast reaction-Benadryl 50 mg p.o. now and 4 times daily as needed for itching or rash --it seems to be mild-- is likely be self- limited. If it bothers her more we can give steroids. At this point, it is mild enough that I would not give it because of the side effects of the steroids. I did discuss with the patient and her that she should be considered allergic to contrast [although it could be something else ], and should be premedicated prior to any future exposure of contrast. The above was discussed with the patient and her . They voiced understanding and agree with the plan. 06/25/16: Assessment/plan/recommendation: The patient is declining several medication. I suggested we will give her Solu-Medrol 125 mg IV now to treat her ongoing presumed contrast reaction. Hopefully will improve. I did warn that it may make her glucoses go much higher BUT we could treat him. Regarding diastolic dysfunction and systolic dysfunction, I explained the benefits of an FREDERIC inhibitor, furosemide, and some spironolactone. She is willing to try these in low doses. Will watch her blood pressure, potassium, creatinine. The [facility] team, including Dr. urias, will take over tomorrow. Current Visit: Yes (2) Shortness of breath Status: Acute Current Visit: Yes (3) CAD (coronary artery disease) Status: Chronic Current Visit: Yes (4) Diabetes Status: Chronic Current Visit: Yes (5) Dyslipidemia Status: Chronic Current Visit: Yes (6) Former smoker Status: Chronic Current Visit: Yes (7) GERD (gastroesophageal reflux disease) Status: Chronic Current Visit: Yes (8) Obesity Status: Chronic Current Visit: Yes (9) Obstructive sleep apnea Status: Chronic Current Visit: Yes (10) Systolic dysfunction, left ventricle Problem details: LVEF about 40% with mild LV enlargement on 06/24/15 at cath Status: Acute Current Visit: Yes (11) Left ventricular diastolic dysfunction Problem details: LVEDP is about 35-40 at heart cath of 06/24/15 Status: Acute Current Visit: Yes Cardiology - PN: Subj Interval history: No chest pain or shortness of breath. Complains of itching be no better with the Benadryl. She continues to have the rash, predominantly on her back. Exam (Progress Note) - Constitutional Vitals: Period Temp Pulse Resp BP Sys/Dorado Pulse Ox Last 24 Hr 96.9 F-98.3 F 59-78 16-20 90-140/59-82 90-100 Exam: HEENT: Pupils equal, reactive to light and accommodation Neck: NoJVD or bruit Lungs clear to auscultation Heart: Regular rhythm rate with normal S1 and S2. Apical S4 Abdomen: No hepatosplenomegaly Spine/extremities: No clubbing, cyanosis, or edema Neuro: Nonfocal Psych: No depression or anxiety Back has maculopapular raised wheals which is reddened. It is pruritic. Some on the front of her chest but less Right groin puncture site has some bruising. Distal pulses normal. Result/EKG - Labs CBC & BMP: 06/24/16 05:13 06/25/16 18:45 Labs: Laboratory Results - last 24 hr 06/24/16 06/25/16 06/25/16 21:48 03:50 03:50 Sodium 141 140 Potassium 4.7 4.7 Chloride 106 106 Carbon Dioxide 26 26 Anion Gap 13.7 12.7 BUN 20 H 19 H Creatinine 1.20 H 1.20 H GFR Calculation 67 67 BUN/Creatinine Ratio 16.00 15.00 Glucose 132 H 134 H POC Glucose 225 H Calculated Osmolality 285.3 282.4 Calcium 9.1 9.0 Total Bilirubin 0.60 AST 15 ALT 20 Alkaline Phosphatase 69 Total Protein 7.1 Albumin 3.3 L Globulin 3.8 H Albumin/Globulin Ratio 0.8 L 06/25/16 06/25/16 06/25/16 07:10 12:35 15:44 Sodium Potassium Chloride Carbon Dioxide Anion Gap BUN Creatinine GFR Calculation BUN/Creatinine Ratio Glucose POC Glucose 179 H 359 H 494 H Calculated Osmolality Calcium Total Bilirubin AST ALT Alkaline Phosphatase Total Protein Albumin Globulin Albumin/Globulin Ratio 06/25/16 06/25/16 18:32 18:45 Sodium Potassium Chloride Carbon Dioxide Anion Gap BUN Creatinine GFR Calculation BUN/Creatinine Ratio Glucose 574 H* POC Glucose > 500 H* Calculated Osmolality Calcium Total Bilirubin AST ALT Alkaline Phosphatase Total Protein Albumin Globulin Albumin/Globulin Ratio Quality Measures - VTE Contraindication to Pharmacological VTE Prophylaxis: High Risk of Bleeding
[2016-06-25] MEDS: GABAPENTIN 300 MG CAPSULE PO SCH (21:50)
[2016-06-26] MEDS ORDERED: INSULIN REGULAR 100 UNIT/ML SUBCUT ONE (00:29)
[2016-06-26 06:44] LABS: Osmolality,Calculated 288.2 MOS/KG (273-304); Potassium 4.4 MMOL/L (3.5-5.1)
[2016-06-26] MEDS: INSULIN GLARGINE 100 UNIT/ML SUBCUT SCH (09:39)
[2016-06-26] MEDS: RANOLAZINE 500 MG TABLET PO SCH ×2 (09:50→20:49)
[2016-06-26] MEDS: OLMESARTAN 20 MG TABLET PO SCH (09:51)
[2016-06-26] MEDS: hydroCHLOROthiazide 25 MG TABLET PO SCH (09:51)
[2016-06-26] MEDS: CLOPIDOGREL 75 MG TABLET PO SCH (09:51)
[2016-06-26] MEDS: ISOSORBIDE DINITRATE SR 40 MG TABLET PO SCH ×2 (09:51→20:50)
[2016-06-26] MEDS: CAPTOPRIL 6.25 MG TABLET PO SCH (09:52)
[2016-06-26] MEDS: CARVEDILOL 6.25 MG TABLET PO SCH ×2 (09:52→20:50)
[2016-06-26] MEDS: SPIRONOLACTONE 25 MG TABLET PO SCH ×2 (09:52→20:50)
[2016-06-26] MEDS: ASPIRIN EC 325 MG TABLET PO SCH (09:53)
[2016-06-26] MEDS: FAMOTIDINE 20 MG TABLET PO SCH ×3 (09:53→20:49)
[2016-06-26] MEDS: PANTOPRAZOLE 40 MG TABLET PO SCH (09:53)
[2016-06-26] MEDS: FUROSEMIDE 40 MG TABLET PO PRN (09:53)
[2016-06-26] MEDS: INSULIN REGULAR 100 UNIT/ML SUBCUT SCH ×4 (09:57→20:51)
[2016-06-26] MEDS: FUROSEMIDE 20 MG TABLET PO SCH (09:57)
[2016-06-26] MEDS: METOCLOPRAMIDE 5 MG TABLET PO SCH ×4 (09:57→20:52)
[2016-06-26] MEDS: GABAPENTIN 100 MG CAPSULE PO SCH ×2 (09:58→20:52)
--- NOTE | 2016-06-26 10:51 | Cardiology Progress Note ---
Cardiology - PN: Subj Interval history: Cardiology note 65-year-old woman Status post cardiac cath which showed aneurysmal proximal disease and distal disease in the LAD and distal right coronary which is a small vessel. Ejection fraction 35-40%. Patient developed a contrast reaction and received Benadryl and IV Solu-Medrol. Blood sugar was 689 at midnight tonight and 383 at 4 AM. Telemetry shows steady sinus rhythm no pain. Decreased breath sounds but clear Regular rhythm no murmur or gallop Abdomen soft benign Right groin soft and dry Lab data Sodium 134 potassium 4.4 chloride 98 CO2 25 BUN 27 creatinine 1.60 Plan Normal saline hydration Accu-Chek sugars BMP in a.m. Possible home tomorrow Metformin 1000 mg twice daily is on hold Patient does not have [place] 10 mics twice daily which she takes at home. DC Capoten Exam (Progress Note) - Constitutional Vitals: Period Temp Pulse Resp BP Sys/Dor[place] Pulse Ox Last 24 Hr 97.2 F-98.5 F 65-85 16-20 111-133/66-89 90-100 Result/EKG - Labs CBC & BMP: 06/24/16 05:13 06/26/16 05:32 Labs: Laboratory Results - last 24 hr 06/25/16 06/25/16 06/25/16 12:35 15:44 18:32 Sodium Potassium Chloride Carbon Dioxide Anion Gap BUN Creatinine GFR Calculation BUN/Creatinine Ratio Glucose POC Glucose 359 H 494 H > 500 H* Calculated Osmolality Calcium 06/25/16 06/25/16 06/26/16 18:45 21:43 00:00 Sodium Potassium Chloride Carbon Dioxide Anion Gap BUN Creatinine GFR Calculation BUN/Creatinine Ratio Glucose 574 H* POC Glucose > 500 H* > 500 H* Calculated Osmolality Calcium 06/26/16 06/26/16 06/26/16 00:18 03:11 05:15 Sodium Potassium Chloride Carbon Dioxide Anion Gap BUN Creatinine GFR Calculation BUN/Creatinine Ratio Glucose 689 H* POC Glucose 422 H 332 H Calculated Osmolality Calcium 06/26/16 06/26/16 05:32 07:30 Sodium 134 L Potassium 4.4 Chloride 98 Carbon Dioxide 25 Anion Gap 15.4 H BUN 27 H Creatinine 1.60 H GFR Calculation 47 BUN/Creatinine Ratio 16.00 Glucose 383 H POC Glucose 336 H Calculated Osmolality 288.2 Calcium 9.0 Quality Measures - VTE Contraindication to Pharmacological VTE Prophylaxis: High Risk of Bleeding
[2016-06-26] MEDS: GABAPENTIN 300 MG CAPSULE PO SCH (20:52)
[2016-06-27 03:52] LABS: Basophils % 0.3 % (0.0-0.8); Eosinophils # 0.3 10*3/uL (0.0-0.87); Eosinophils % 2.7 % (0.00-10.9); Hematocrit 36.2 VOL% (35.7-47.0); Hemoglobin 11.3 GM/DL (12.0-16.0); Immature Granulocytes % 0.3 %; Immature Granulocytes Absolute 0.03 #; Lymphocytes # 4.3 10*3/uL (1.4-4.0); Lymphocytes % 39.4 % (21.3-54.2); Mean Corpuscular HGB Conc 31.2 GM/DL (32-36); Mean Corpuscular Hemoglobin 28 PG (27-34); Mean Platelet Volume 10.3 FL (9.6-12.0); Monocytes # 0.9 10*3/uL (0.11-0.8); Monocytes % 7.9 % (1.7-12.7); Neutrophils # 5.4 10*3/uL (1.4-7.4); Neutrophils % 49.4 % (38.7-73.9); Platelet Count 262 T/CUMM (130-400); Red Blood Count 4.02 MC/CUMM (3.8-5.5); Red Cell Distribution Width 12.1 % (9.3-17.3)
[2016-06-27 04:26] LABS: Calcium 8.6 MG/DL (8.5-10.1); Magnesium 2.1 MG/DL (1.8-2.4); Osmolality,Calculated 286.5 MOS/KG (273-304); Potassium 3.8 MMOL/L (3.5-5.1)
[2016-06-27 07:53] VITALS: BP 148/93
[2016-06-27] MEDS: METOCLOPRAMIDE 5 MG TABLET PO SCH (08:05)
--- NOTE | 2016-06-27 09:32 | Discharge Summary ---
<Candis Carreno Jamar - Last Filed: 06/27/16 09:16> Hospital Course - Hospital Course Hospital Course: [facility] REPAIRER: DR. SIMMONS Ms. Wilkinson is a 65 year old female who is followed by Dr. Simmons. She has a history of severe diffuse coronary artery disease with multiple aneurysmal segments (not candidate for CABG), hypertension, dyslipidemia, diabetes mellitus, obstructive sleep apnea, former tobacco use, gastroesophageal reflux disease, and obesity. She presented to the emergency department shortly after midnight ON 06/23/16 with complaints of chest discomfort and shortness of breath that began after she arrived at work, around 2300. Her EKG was unremarkable. She had 3 sets of negative cardiac biomarkers. BNP 33. Creatinine 1.7 with GFR 44; this appears to be around her baseline recently. Given her history and presentation, the decision was made to take her to the [facility] label[facility] for left heart catheterization. She was found to have significant, obstructive coronary disease involving distal obtuse marginal circumflex, the distal LAD, and the distal right coronary artery---in these areas, the vessel was too small to intervene upon-probably 1-1.5 mm diameter vessels. There was moderate disease in other vessels. Post cath, she sustained a contrast reaction with itching and maculopapular rash on her back and anterior body. She was given Benadryl QID for several days and was given IV sterioids to help with her symptoms. Following administration of IV steroids, her blood glucose nola to 689. Post cath, her creatinine was 1.6. Her metformin was held. She was monitored for an extra day on the telemetry unit and has now met criteria and is anxious for discharge. Creatinine is stable at 1.6. Her right groin is open to air; there is no bleeding or hematoma, no bruit, mild tenderness to palpation. Femoral pulse 3+. Distal pulses present and palpable bilaterally. She denies further episodes of chest discomfort. She was started on a low dose of Aldactone and Lasix 20mg PO daily during admission and will continue this at discharge. Mrs. Wilkinson wishes to go back to work tonight. Groin care instructions and precautions have been reviewed. She is allowed to resume working, but no lifting over 5 pounds, stooping, climbing flights of stairs, or straining for the next 2-3 days. After discussion with Dr. Simmons, the patient will be discharged home on the following medications: Ranexa 1000mg PO BID Zantac 150mg PO BID Compazine 10mg PO Qotherday PRN Protonix 40mg po daily Benicar HCT 40/25mg po daily Nitrostat 0.4mg SL daily PRN Reglan 5mg po ACHS Metformin 1000mg PO BID Lidoderm 5% patch 1 transdermal daily PRN Isordil 40mg PO BID Levemir 30 units SubCut. Daily Neruontin Cap/Tab 300mg PO Bedtime Gabapentin 100mg PO BID Byetta 10mcg SubCut. BID Plavix 75mg po daily Coreg 6.25mg PO BID ASA 325mg po daily Proventil Inhaler 2 puff InH. Q6H PRN NEW: Furosemide 20mg PO DAILY Aldactone 6.25mg PO BID - Time spent with patient Time with patient DS: Greater than 30 minutes Diagnosis - Discharge Diagnosis (1) Chest pain Status: Resolved (2) Shortness of breath Status: Resolved (3) CAD (coronary artery disease) Status: Chronic (4) Dyslipidemia Status: Chronic (5) GERD (gastroesophageal reflux disease) Status: Chronic (6) Obesity Status: Chronic (7) Former smoker Status: Chronic (8) History of PR (myocardial infarction) Status: Chronic (9) Diabetes Status: Chronic (10) Obstructive sleep apnea Status: Chronic Specialty Discharge - Follow Up or Referrals Follow up with: Nik Simmons MD [Physician] - 07/11/16 12:50 pm (LAB WORK SCHEDULED ON June @ 11:00) Discharge Plan - Discharge Data Disposition: Disch To Home/Self Care Condition at Discharge: Stable Discharge Diet: diabetic diet, heart healthy Activity: other (post cath expectations) Hygiene: other (post cath expectations) Weight Bearing at Discharge: full weight bearing (post cath expectations) Driving: other (post cath expectations) Contact your physician if you experience:: fever over 101, Difficulty voiding, Redness or swelling, Nausea/Vomiting, Shortness of breath, Bleeding, pain uncontrolled by pain medications - Discharge Medications New Spironolactone [Aldactone] 6.25 mg PO BID #60 tablet Furosemide Tab [Lasix Tab] 20 mg PO DAILY #30 tablet Continue Insulin Detemir [Levemir] 30 unit SUBCUT DAILY Nitroglycerin Sl Tab [Nitrostat] 0.4 mg SL DAILY PRN PRN Reason: Chest Pain Ranolazine [Ranexa] 1,000 mg PO BID Isosorbide Dinitrate [Isordil] 40 mg PO BID Clopidogrel [Plavix] 75 mg PO DAILY Carvedilol [Coreg] 6.25 mg PO BID Exenatide [Byetta] 10 mcg SUBCUT BID Aspirin EC Tab 325 mg PO DAILY Gabapentin Cap/Tab [Neurontin Cap/Tab] 300 mg PO BEDTIME Prochlorperazine Tab [Compazine Tab] 10 mg PO QOTHER DAY PRN PRN Reason: Nausea Metformin HCl 1,000 mg PO BID Gabapentin 100 mg PO BID Metoclopramide Tab [Reglan Tab] 5 mg PO ACHS #40 tablet Pantoprazole Tab [Protonix Tab] 40 mg PO DAILY #30 tablet Albuterol Inhaler [Proventil Inhaler] 2 puff INH Q6H PRN PRN Reason: Shortness Of Breath/Wheezing Lidocaine 5% Patch [Lidoderm 5% Patch] 1 patch TRANSDERM DAILY PRN PRN Reason: KNEE PAIN Olmesartan/Hydrochlorothiazide [Benicar Hct 40-25 mg Tablet] 1 each PO DAILY Ranitidine Tab [Zantac Tab] 150 mg PO BID Discontinued Furosemide Tab [Lasix Tab] 40 mg PO DAILY PRN PRN Reason: FLUID RETENTION - Follow Up or Referral Follow Up: Nik Simmons MD [Physician] - 07/11/16 12:50 pm (LAB WORK SCHEDULED ON June @ 11:00) - Forms/Instructions Instructions: Chest Pain (DC), Left Heart Catheterization (DC) Additional Discharge Instructions: Post cath expectations. Exam - Constitutional Vitals: Period Temp Pulse Resp BP Sys/[place] Pulse Ox Last 24 Hr 97 F-98.4 F 60-77 18-20 107-152/61-100 96-100 Exam: General: Present: Appears Well, No Apparent Distress. Pleasant and cooperative. Appears comfortable. HEENT: Present: PERRL, Normocephaly, atraumatic. Mucus Membranes Moist. No jaundice noted. Conjunctiva moist and clear, sclerae anicteric Neck: Present: Supple Neck, Midline Trachea, No Masses, No Bruit, No tenderness Cardiac: Present: Regular Rate and Rhythm, No Murmur Lungs: Present: Clear to auscultation bilaterally, no wheeze, rhonchi, rales. Neuro: Present: Awake, alert, and oriented x3. Moves all extremities well without hemiparesis or paralysis. Grossly Intact. Absent: Resting Tremor, Essential Tremor Abdomen: Present: Soft, Active Bowel Sounds, No Masses, Non-Tender, nondistended. No abdominal bruit or thrill noted. Skin: Present: Clear. Absent: Rash, No skin breakdown. Back: Normal inspection, no vertebral tenderness. Musculoskeletal: Present: No Fluid Collection, No Pain, Normal Range of Motion Extremities: Present: Normal Gait, No Clubbing, No Cyanosis, Upper Extr. Pulses 2+, Lower Extr. Pulses 2+, No edema. Capillary refill less than 3 seconds. Right groin: No bleeding, hematoma, or bruit at site. Mild tenderness to palpation. Femoral pulse 3+. Distal pulses 2+. Discharge Results Procedures and tests throughout hospitalization: Left heart catheterization 06/23/16: Impression: Significant, obstructive coronary disease involving distal obtuse marginal circumflex, the distal LAD, and the distal right coronary artery---in these areas, the vessel was too small to intervene upon-probably 1-1.5 mm diameter vessels Moderate disease in other vessels. Aneurysmal disease throughout all 3 vessels-it makes me think of Kawasaki's disease in the pediatric age group-made this is an adult form of this disease-? A proximal diagonal had the next most severe lesion--this lesion it appeared to be 70 or 80% but the diameter of the residual vessel was probably 1 1/2 mm because there is aneurysmal disease around that lesion-thought to not be a flow- limiting lesion Moderate global left ventricular systolic dysfunction. Overall left ventricular ejection fraction about 40%. Severe elevation of LVEDP-35-40 mmHg, this was measured twice, even after receiving the transducer, to make sure it was accurate Angiogram the right coronary-by follow-through from the LV gram Angio-Seal right femoral artery-successful Plan/recommendations: The patient will have risk factors optimized. Based on his angiogram, fixed, obstructive disease is distal. It could be causing her symptoms. There also could be a GI cause could be related to the high LVEDP. I will defer to Dr. Linder about treatment. However, one could plan will be to treat for all 3. The patient is on Plavix and aspirin. Rate is slow. I suspect she is on a beta-landon. Her creatinine is about 1.7. If she could tolerate it, she could be on ARB or FREDERIC inhibitor and possibly spironolactone, it might help the high LVEDP. Also, judicious use of a diuretic might help. The possibility that the patient has sleep apnea contributing to symptoms could be considered. The patient will be on antiplatelet medications to include aspirin indefinitely and Plavix . Follow-up will be scheduled. Labs on day of discharge: Labs from last 24 hours 06/27/16 06/27/16 06/27/16 07:18 02:14 02:14 WBC 11.0 D RBC 4.02 Hgb 11.3 L Hct 36.2 MCV 90.0 MCH 28 MCHC 31.2 L RDW 12.1 Plt Count 262 MPV 10.3 Neut % (Auto) 49.4 Lymph % (Auto) 39.4 [place] % (Auto) 7.9 Eos % (Auto) 2.7 Baso % (Auto) 0.3 Neut # (Auto) 5.4 Lymph # (Auto) 4.3 H [place] # (Auto) 0.9 H Eos # (Auto) 0.3 Baso # (Auto) 0.0 Immature Gran % 0.3 Nucleated RBC % 0.0 Immature Gran # 0.03 Nucleated RBCs # 0.00 Sodium 139 Potassium 3.8 Chloride 99 Carbon Dioxide 28 Anion Gap 15.8 H BUN 28 H Creatinine 1.60 H GFR Calculation 47 BUN/Creatinine Ratio 17.00 Glucose 169 H POC Glucose 106 Calculated Osmolality 286.5 Calcium 8.6 Magnesium 2.1 06/26/16 06/26/16 06/26/16 20:46 16:18 12:10 WBC RBC Hgb Hct MCV MCH MCHC RDW Plt Count MPV Neut % (Auto) Lymph % (Auto) [place] % (Auto) Eos % (Auto) Baso % (Auto) Neut # (Auto) Lymph # (Auto) [place] # (Auto) Eos # (Auto) Baso # (Auto) Immature Gran % Nucleated RBC % Immature Gran # Nucleated RBCs # Sodium Potassium Chloride Carbon Dioxide Anion Gap BUN Creatinine GFR Calculation BUN/Creatinine Ratio Glucose POC Glucose 312 H 374 H 465 H Calculated Osmolality Calcium Magnesium DS: Provider Date of admission: 06/23/16 04:07 Primary care physician: . No PCP Attending physician on admission: Stef Lopez MD Discharging clinician: MARIBEL Jurado- Expected date of discharge: 06/27/16 <Nik Simmons - Last Filed: 06/27/16 10:46> Hospital Course - Hospital Course Hospital Course: Cardiology addendum. Patient examined and chart reviewed. Fasting blood sugar today 169 Walking comfortably and ready to go home. Right groin soft and dry. No bruit or hematoma. Distal pulses 2+ symmetric. Creatinine stable at 1.60. Plan Discharge today. Lasix 20 mg daily and Aldactone 6.25 mg twice daily added Patient will restart her home diabetic medications. Office visit in 2 weeks with EKG.
[2016-06-27] MEDS: SPIRONOLACTONE 25 MG TABLET PO SCH (09:43)
[2016-06-27] MEDS: OLMESARTAN 20 MG TABLET PO SCH (09:44)
[2016-06-27] MEDS: CLOPIDOGREL 75 MG TABLET PO SCH (09:44)
[2016-06-27] MEDS: FUROSEMIDE 40 MG TABLET PO PRN (09:45)
[2016-06-27] MEDS: hydroCHLOROthiazide 25 MG TABLET PO SCH (09:45)
[2016-06-27] MEDS: PANTOPRAZOLE 40 MG TABLET PO SCH (09:45)
[2016-06-27] MEDS: RANOLAZINE 500 MG TABLET PO SCH (09:45)
[2016-06-27] MEDS: ASPIRIN EC 325 MG TABLET PO SCH (09:45)
[2016-06-27] MEDS: CARVEDILOL 6.25 MG TABLET PO SCH (09:46)
[2016-06-27] MEDS: FAMOTIDINE 20 MG TABLET PO SCH (09:46)
[2016-06-27] MEDS: INSULIN GLARGINE 100 UNIT/ML SUBCUT SCH (10:30)
[2016-06-27] MEDS: INSULIN REGULAR 100 UNIT/ML SUBCUT SCH (10:30)
[2016-06-27] MEDS: FUROSEMIDE 20 MG TABLET PO SCH (10:31)
[2016-06-27] MEDS: GABAPENTIN 100 MG CAPSULE PO SCH (10:33)
[2016-06-27] MEDS: ISOSORBIDE DINITRATE SR 40 MG TABLET PO SCH (10:34)
== END 2016-06-27 10:42 | disposition home or self-care (01) | DRG 287 ==
LOC: EDBD → EDUNIT# → N.ED 02:14 → N.EDINP 04:07 → N.TELES 04:59
PROVIDERS: ADMIT Internal Medicine Cardiovascular Disease; ATTEND Internal Medicine Cardiovascular Disease
PROC: CLCCHCL (ICD-10-PCS; 2016-06-23 13:45)

== ENCOUNTER 2017-08-26 08:10 | Observation (INO) ==
[2017-08-26 09:24] LABS: Basophils % 0.5 % (0.0-0.8); Eosinophils # 0.1 10*3/uL (0.0-0.87); Eosinophils % 2.6 % (0.00-10.9); Hematocrit 29.1 VOL% (35.7-47.0); Hemoglobin 9.1 GM/DL (12.0-16.0); Immature Granulocytes % 0.2 %; Immature Granulocytes Absolute 0.01 #; Lymphocytes # 2.2 10*3/uL (1.4-4.0); Lymphocytes % 51.9 % (21.3-54.2); Mean Corpuscular HGB Conc 31.3 GM/DL (32-36); Mean Corpuscular Hemoglobin 29 PG (27-34); Mean Corpuscular Volume 91.5 FL (87-102); Mean Platelet Volume 9.9 FL (9.6-12.0); Monocytes # 0.6 10*3/uL (0.11-0.8); Monocytes % 14.7 % (1.7-12.7); Neutrophils # 1.3 10*3/uL (1.4-7.4); Neutrophils % 30.1 % (38.7-73.9); Platelet Count 182 T/CUMM (130-400); Red Blood Count 3.18 MC/CUMM (3.8-5.5); Red Cell Distribution Width 13.6 % (9.3-17.3); White Blood Count 4.3 T/CUMM (4-12)
[2017-08-26 09:29] LABS: Apearance,Urine Slightly Hazy (Clear); Bacteria,Urine Occasional /HPF (Few); Bilirubin,Urine Negative (Negative); Blood, Urine Negative (Negative); Glucose,Urine (UA) Negative (Negative); Hyaline Casts,Urine 1 /LPF (0-3); Ketones,Urine Negative (Negative); Mucus,Urine Occasional /LPF (Occasional); Nitrite,Urine Negative (Negative); Protein,Urine Negative; RBC,Urine 4 /HPF (0-4); Squamous Epithelial Cell,Urine Occasional /HPF (0-10); Urine Color Yellow (Yellow); Urine Specific Gravity 1.018 (1.001-1.035); Urine Urobilinogen < 2.0 EU/DL (0.2-1.0); WBC,Urine 1 /HPF (0-6)
[2017-08-26 09:44] LABS: Band Neutrophils 1 % (0-10); Eosinophils 1 % (0-10); Hypochromasia 1+; Lymphocytes 57 % (20-55); Ovalocytes Slight; Platelet Estimate Normal; Segmented Neutrophils 31 % (50-85); Total Cells Counted 100
[2017-08-26 10:05] LABS: Albumin 3.4 G/DL (3.4-5.0); Bilirubin,Total 0.4 MG/DL (0.2-1.0); Calcium 9.2 MG/DL (8.5-10.1); Osmolality,Calculated 289.3 MOS/KG (273-304); Potassium 4.2 MMOL/L (3.5-5.1); Total Protein 8.5 G/DL (6.4-8.3)
[2017-08-26] MEDS ORDERED: methylPREDNISolone SOD SUC 125 MG/2 ML VIAL IV STA (10:15)
[2017-08-26] MEDS ORDERED: diphenhydrAMINE 50 MG/1 ML VIAL IV STA (10:16)
[2017-08-26] MEDS ORDERED: DEXTROSE 50% 25 GM/50 ML VIAL IV STA (10:21)
[2017-08-26] MEDS ORDERED: DEXTROSE 50% 25 GM/50 ML SYRINGE IV ONE (10:21)
[2017-08-26] MEDS ORDERED: DEXTROSE 50% 25 GM/50 ML VIAL IV PRN (14:25)
[2017-08-26] MEDS ORDERED: GLUCAGON 1 MG VIAL IM PRN (14:25)
[2017-08-26] MEDS ORDERED: LACTULOSE 20 GM/30 ML UDCUP PO ONE (15:08)
[2017-08-26] MEDS ORDERED: MAGNESIUM HYDROXIDE SUSP 30 ML UDCUP PO ONE (15:08)
[2017-08-26] MEDS: CARVEDILOL 6.25 MG TABLET PO SCH (20:47)
[2017-08-26] MEDS: ISOSORBIDE DINITRATE 10 MG TABLET PO SCH (20:47)
[2017-08-26] MEDS: MAGNESIUM CHLORIDE 64 MG TABLET PO SCH (20:48)
[2017-08-26] MEDS ORDERED: NON-FORMULARY MEDICATION (Ranolazine [Ranexa] 1,000 MG) PO SCH (21:00)
[2017-08-27] MEDS ORDERED: FUROSEMIDE 20 MG TABLET PO SCH (09:00)
[2017-08-27] MEDS ORDERED: [UNRECOGNIZED DRUG - OTHER] PO SCH (09:00)
[2017-08-27] MEDS ORDERED: HYDROCHLOROTHIAZIDE PO SCH (09:00)
[2017-08-27] MEDS ORDERED: OLMESARTAN PO SCH (09:00)
[2017-08-27] MEDS: ASPIRIN EC 325 MG TABLET PO SCH (10:50)
[2017-08-27] MEDS: MAGNESIUM CHLORIDE 64 MG TABLET PO SCH ×2 (10:51→20:57)
[2017-08-27] MEDS: CLOPIDOGREL 75 MG TABLET PO SCH (10:51)
[2017-08-27] MEDS: ISOSORBIDE DINITRATE 10 MG TABLET PO SCH ×2 (10:51→20:56)
[2017-08-27] MEDS: CARVEDILOL 6.25 MG TABLET PO SCH ×2 (10:51→20:57)
[2017-08-27] MEDS: PRAVASTATIN 20 MG TABLET PO SCH (10:51)
[2017-08-27] MEDS ORDERED: GLUCAGON 1 MG VIAL IM PRN (19:53)
[2017-08-27] MEDS ORDERED: DEXTROSE 50% 25 GM/50 ML VIAL IV PRN (19:53)
[2017-08-27] MEDS ORDERED: SIMETHICONE CHEW 125 MG TABLET PO PRN (20:53)
[2017-08-27] MEDS ORDERED: MORPHINE 4 MG/1 ML VIAL IV ONE (20:53)
[2017-08-27] MEDS: INSULIN REGULAR 100 UNIT/ML SUBCUT SCH ×2 (20:55→23:56)
[2017-08-28 05:21] LABS: Basophils % 0.5 % (0.0-0.8); Eosinophils # 0.2 10*3/uL (0.0-0.87); Eosinophils % 5.5 % (0.00-10.9); Hematocrit 30.4 VOL% (35.7-47.0); Hemoglobin 9.4 GM/DL (12.0-16.0); Lymphocytes # 1.7 10*3/uL (1.4-4.0); Lymphocytes % 44.5 % (21.3-54.2); Mean Corpuscular HGB Conc 30.9 GM/DL (32-36); Mean Corpuscular Hemoglobin 28 PG (27-34); Mean Corpuscular Volume 91.6 FL (87-102); Mean Platelet Volume 10.1 FL (9.6-12.0); Monocytes # 0.6 10*3/uL (0.11-0.8); Monocytes % 15.2 % (1.7-12.7); Neutrophils # 1.3 10*3/uL (1.4-7.4); Neutrophils % 34.3 % (38.7-73.9); Platelet Count 181 T/CUMM (130-400); Red Blood Count 3.32 MC/CUMM (3.8-5.5); Red Cell Distribution Width 13.3 % (9.3-17.3); White Blood Count 3.8 T/CUMM (4-12)
[2017-08-28] MEDS: INSULIN REGULAR 100 UNIT/ML SUBCUT SCH (05:36)
[2017-08-28 05:39] LABS: Calcium 9.1 MG/DL (8.5-10.1); Osmolality,Calculated 286.4 MOS/KG (273-304); Potassium 4.8 MMOL/L (3.5-5.1)
[2017-08-28 05:54] LABS: Eosinophils 9 % (0-10); Hypochromasia 1+; Lymphocytes 40 % (20-55); Ovalocytes Slight; Platelet Estimate Adequate; Segmented Neutrophils 38 % (50-85); Total Cells Counted 100
[2017-08-28 07:44] VITALS: BP 156/79
[2017-08-28] MEDS ORDERED: INSULIN GLARGINE 100 UNIT/ML SUBCUT SCH (09:00)
[2017-08-28] MEDS: CLOPIDOGREL 75 MG TABLET PO SCH (09:36)
[2017-08-28] MEDS: PRAVASTATIN 20 MG TABLET PO SCH (09:36)
[2017-08-28] MEDS: ASPIRIN EC 325 MG TABLET PO SCH (09:36)
[2017-08-28] MEDS: ISOSORBIDE DINITRATE 10 MG TABLET PO SCH (09:36)
[2017-08-28] MEDS: CARVEDILOL 6.25 MG TABLET PO SCH (09:36)
[2017-08-28] MEDS: MAGNESIUM CHLORIDE 64 MG TABLET PO SCH (09:36)
== END 2017-08-28 10:45 | disposition home or self-care (01) ==
LOC: N.ED 08:10 → N.EDINP 08:10 → N.3E 12:45

== ENCOUNTER 2017-09-13 19:36 | Inpatient (IN) ==
[2017-09-13] MEDS ORDERED: ALBUTEROL/IPRATROPIUM 3 ML NEB RESP TX STA (19:54)
[2017-09-13] MEDS ORDERED: LORazepam 2 MG/1 ML VIAL IV STA (19:54)
[2017-09-13 20:17] LABS: Basophils % 0.2 % (0.0-0.8); Eosinophils # 0.1 10*3/uL (0.0-0.87); Eosinophils % 2.7 % (0.00-10.9); Hemoglobin 9.1 GM/DL (12.0-16.0); Immature Granulocytes % 0.4 %; Immature Granulocytes Absolute 0.02 #; Lymphocytes # 2.8 10*3/uL (1.4-4.0); Lymphocytes % 54.4 % (21.3-54.2); Mean Corpuscular HGB Conc 31.4 GM/DL (32-36); Mean Corpuscular Hemoglobin 29 PG (27-34); Mean Corpuscular Volume 92.1 FL (87-102); Mean Platelet Volume 10.4 FL (9.6-12.0); Monocytes # 0.6 10*3/uL (0.11-0.8); Monocytes % 10.6 % (1.7-12.7); Neutrophils # 1.6 10*3/uL (1.4-7.4); Neutrophils % 31.7 % (38.7-73.9); Platelet Count 144 T/CUMM (130-400); Red Blood Count 3.15 MC/CUMM (3.8-5.5); White Blood Count 5.2 T/CUMM (4-12)
[2017-09-13 20:34] LABS: PT Patient Result 10.7 SECS; Partial Thromboplastin Time 25.4 SECS (0-40)
[2017-09-13 20:42] LABS: Alanine Aminotransferase 17 U/L (13-56); Albumin 3.1 G/DL (3.4-5.0); Alkaline Phosphatase 71 U/L (45-117); Aspartate Amino Transferase 16 U/L (0-37); Bilirubin,Total < 0.39 MG/DL (0.2-1.0); Blood Urea Nitrogen 16 MG/DL (7-18); Calcium 8.5 MG/DL (8.5-10.1); Glucose 148 MG/DL (74-106); Osmolality,Calculated 293.6 MOS/KG (273-304); Potassium 3.4 MMOL/L (3.5-5.1); Sodium 146 MMOL/L (136-145); Total Protein 7.7 G/DL (6.4-8.3); Troponin I Only < 0.015 NG/ML (0.00-0.045)
[2017-09-13] MEDS ORDERED: FUROSEMIDE 40 MG/4 ML VIAL IV STA (21:11)
[2017-09-13] MEDS ORDERED: FUROSEMIDE 100 MG/10 ML VIAL ONE (21:50)
[2017-09-13 22:30] LABS: Apearance,Urine CLEAR (Clear); Bacteria,Urine Occasional /HPF (Few); Bilirubin,Urine Negative (Negative); Blood, Urine Small mg/dL (Negative); Glucose,Urine (UA) Negative (Negative); Ketones,Urine Negative (Negative); Mucus,Urine Occasional /LPF (Occasional); Nitrite,Urine Negative (Negative); Protein,Urine Negative; RBC,Urine 1 /HPF (0-4); Squamous Epithelial Cell,Urine Occasional /HPF (0-10); Urine Color Straw (Yellow); Urine Specific Gravity 1.006 (1.001-1.035); Urine Urobilinogen < 2.0 EU/DL (0.2-1.0); WBC,Urine 11 /HPF (0-6)
[2017-09-13 22:40] LABS: Barbiturates Screen,Urine Negative (Negative); Benzodiazepines Screen,Urine Negative (Negative); Cannabinoid Screen,Urine Negative (Negative); Opiate Screen,Urine Negative (Negative); Phencyclidine Screen,Urine Negative (Negative)
[2017-09-14] MEDS ORDERED: DEXTROSE 50% 25 GM/50 ML VIAL IV PRN (00:34)
[2017-09-14] MEDS ORDERED: GLUCAGON 1 MG VIAL IM PRN (00:34)
[2017-09-14] MEDS ORDERED: ENOXAPARIN 120 MG/0.8 ML SYRINGE SUBCUT ONE (01:00)
[2017-09-14 01:14] LABS: Calcium 8.8 MG/DL (8.5-10.1); Osmolality,Calculated 297.6 MOS/KG (273-304); Potassium 3.5 MMOL/L (3.5-5.1)
[2017-09-14] MEDS ORDERED: POTASSIUM CHLORIDE 20 MEQ TABLET PO ONE (01:18)
[2017-09-14] MEDS: ALBUTEROL 1.25 MG/3 ML NEB RESP TX SCH ×4 (01:24→19:20)
[2017-09-14 02:08] LABS: Troponin I Only < 0.015 NG/ML (0.00-0.045)
[2017-09-14 04:18] LABS: Troponin I Only < 0.015 NG/ML (0.00-0.045)
[2017-09-14] MEDS: PRAVASTATIN 20 MG TABLET PO SCH (08:54)
[2017-09-14] MEDS: INSULIN LISPRO 100 UNIT/ML SUBCUT SCH ×6 (08:54→22:49)
[2017-09-14] MEDS: CARVEDILOL 6.25 MG TABLET PO SCH ×2 (08:54→20:40)
[2017-09-14] MEDS: ASPIRIN EC 325 MG TABLET PO SCH (08:54)
[2017-09-14] MEDS: ISOSORBIDE DINITRATE 10 MG TABLET PO SCH ×2 (08:54→20:39)
[2017-09-14] MEDS: CLOPIDOGREL 75 MG TABLET PO SCH (08:54)
[2017-09-14] MEDS: MAGNESIUM CHLORIDE 64 MG TABLET PO SCH ×2 (08:55→20:40)
[2017-09-14] MEDS: FAMOTIDINE 20 MG TABLET PO SCH ×2 (08:55→20:40)
[2017-09-14] MEDS ORDERED: FUROSEMIDE 40 MG/4 ML VIAL IV SCH (09:00)
[2017-09-14 13:50] LABS: Troponin I Only < 0.015 NG/ML (0.00-0.045)
[2017-09-14] MEDS: hydrALAZINE 25 MG TABLET PO SCH ×2 (16:06→20:40)
[2017-09-14] MEDS: FUROSEMIDE 40 MG/4 ML VIAL IV SCH (16:07)
[2017-09-14] MEDS: INSULIN GLARGINE 100 UNIT/ML SUBCUT SCH (20:39)
[2017-09-15] MEDS: ONDANSETRON 4 MG/2 ML VIAL IV PRN ×2 (00:24→17:42)
[2017-09-15] MEDS: ALBUTEROL 1.25 MG/3 ML NEB RESP TX SCH ×4 (01:04→19:34)
[2017-09-15 03:53] LABS: Basophils % 0.4 % (0.0-0.8); Eosinophils # 0.2 10*3/uL (0.0-0.87); Hematocrit 30.2 VOL% (35.7-47.0); Hemoglobin 9.5 GM/DL (12.0-16.0); Immature Granulocytes % 0.7 %; Immature Granulocytes Absolute 0.03 #; Lymphocytes # 1.9 10*3/uL (1.4-4.0); Lymphocytes % 42.7 % (21.3-54.2); Mean Corpuscular HGB Conc 31.5 GM/DL (32-36); Mean Corpuscular Hemoglobin 28 PG (27-34); Mean Corpuscular Volume 90.4 FL (87-102); Mean Platelet Volume 10.3 FL (9.6-12.0); Monocytes # 0.7 10*3/uL (0.11-0.8); Monocytes % 14.8 % (1.7-12.7); Neutrophils # 1.7 10*3/uL (1.4-7.4); Neutrophils % 37.4 % (38.7-73.9); Platelet Count 161 T/CUMM (130-400); Red Blood Count 3.34 MC/CUMM (3.8-5.5); Red Cell Distribution Width 13.3 % (9.3-17.3); White Blood Count 4.5 T/CUMM (4-12)
[2017-09-15 04:38] LABS: Calcium 8.9 MG/DL (8.5-10.1); Osmolality,Calculated 289.3 MOS/KG (273-304); Potassium 3.6 MMOL/L (3.5-5.1)
[2017-09-15 05:11] LABS: Eosinophils 7 % (0-10); Lymphocytes 39 % (20-55); Segmented Neutrophils 38 % (50-85); Total Cells Counted 100
[2017-09-15 05:12] LABS: Hypochromasia 1+; Platelet Estimate Normal
[2017-09-15] MEDS: INSULIN LISPRO 100 UNIT/ML SUBCUT SCH ×4 (08:11→20:54)
[2017-09-15] MEDS: CARVEDILOL 6.25 MG TABLET PO SCH (09:19)
[2017-09-15] MEDS: CLOPIDOGREL 75 MG TABLET PO SCH (09:20)
[2017-09-15] MEDS: PRAVASTATIN 20 MG TABLET PO SCH (09:20)
[2017-09-15] MEDS: hydrALAZINE 25 MG TABLET PO SCH (09:20)
[2017-09-15] MEDS: FAMOTIDINE 20 MG TABLET PO SCH ×2 (09:20→20:53)
[2017-09-15] MEDS: MAGNESIUM CHLORIDE 64 MG TABLET PO SCH ×2 (09:20→20:53)
[2017-09-15] MEDS: ASPIRIN EC 325 MG TABLET PO SCH (09:20)
[2017-09-15] MEDS: FUROSEMIDE 40 MG/4 ML VIAL IV SCH ×2 (09:22→16:54)
[2017-09-15] MEDS: ISOSORBIDE DINITRATE 10 MG TABLET PO SCH ×2 (10:17→20:53)
[2017-09-15] MEDS ORDERED: MAGNESIUM CITRATE 300 ML BOTTLE PO ONE (11:38)
[2017-09-15 13:01] LABS: Apearance,Urine CLEAR (Clear); Bilirubin,Urine Negative (Negative); Blood, Urine Negative (Negative); Glucose,Urine (UA) Negative (Negative); Ketones,Urine Negative (Negative); Mucus,Urine Occasional /LPF (Occasional); Nitrite,Urine Negative (Negative); Protein,Urine Negative; RBC,Urine 1 /HPF (0-4); Squamous Epithelial Cell,Urine Occasional /HPF (0-10); Urine Color Colorless (Yellow); Urine Specific Gravity 1.005 (1.001-1.035); Urine Urobilinogen < 2.0 EU/DL (0.2-1.0); WBC,Urine 1 /HPF (0-6)
[2017-09-15] MEDS: GABAPENTIN 100 MG CAPSULE PO SCH ×2 (16:52→20:53)
[2017-09-15] MEDS: CARVEDILOL 3.125 MG TABLET PO SCH (20:53)
[2017-09-15] MEDS: CYCLOBENZAPRINE 10 MG TABLET PO SCH (20:53)
[2017-09-15] MEDS: INSULIN GLARGINE 100 UNIT/ML SUBCUT SCH (20:54)
[2017-09-16] MEDS: ALBUTEROL 1.25 MG/3 ML NEB RESP TX SCH ×2 (00:46→07:17)
[2017-09-16 04:15] LABS: Basophils % 0.2 % (0.0-0.8); Eosinophils # 0.2 10*3/uL (0.0-0.87); Eosinophils % 4.8 % (0.00-10.9); Hematocrit 32.1 VOL% (35.7-47.0); Hemoglobin 10.2 GM/DL (12.0-16.0); Immature Granulocytes % 0.2 %; Immature Granulocytes Absolute 0.01 #; Mean Corpuscular HGB Conc 31.8 GM/DL (32-36); Mean Corpuscular Hemoglobin 29 PG (27-34); Mean Corpuscular Volume 90.4 FL (87-102); Mean Platelet Volume 10.3 FL (9.6-12.0); Monocytes # 0.5 10*3/uL (0.11-0.8); Monocytes % 12.6 % (1.7-12.7); Neutrophils # 1.4 10*3/uL (1.4-7.4); Neutrophils % 34.2 % (38.7-73.9); Platelet Count 167 T/CUMM (130-400); Red Blood Count 3.55 MC/CUMM (3.8-5.5); Red Cell Distribution Width 13.3 % (9.3-17.3); White Blood Count 4.2 T/CUMM (4-12)
[2017-09-16 04:59] LABS: Calcium 8.8 MG/DL (8.5-10.1); Osmolality,Calculated 287.8 MOS/KG (273-304); Potassium 3.4 MMOL/L (3.5-5.1)
[2017-09-16 05:31] LABS: Atypical Lymphocytes Few; Eosinophils 5 % (0-10); Hypochromasia 1+; Lymphocytes 52 % (20-55); Ovalocytes Slight; Platelet Estimate Normal; Segmented Neutrophils 25 % (50-85); Total Cells Counted 100
[2017-09-16 08:09] VITALS: BP 159/94
[2017-09-16] MEDS: INSULIN LISPRO 100 UNIT/ML SUBCUT SCH (08:41)
[2017-09-16] MEDS: GABAPENTIN 100 MG CAPSULE PO SCH (08:43)
[2017-09-16] MEDS: CYCLOBENZAPRINE 10 MG TABLET PO SCH (08:43)
[2017-09-16] MEDS: FAMOTIDINE 20 MG TABLET PO SCH (08:43)
[2017-09-16] MEDS: ISOSORBIDE DINITRATE 10 MG TABLET PO SCH (08:43)
[2017-09-16] MEDS: CARVEDILOL 3.125 MG TABLET PO SCH (08:44)
[2017-09-16] MEDS: PRAVASTATIN 20 MG TABLET PO SCH (08:44)
[2017-09-16] MEDS: ASPIRIN EC 325 MG TABLET PO SCH (08:44)
[2017-09-16] MEDS: CLOPIDOGREL 75 MG TABLET PO SCH (08:44)
[2017-09-16] MEDS: MAGNESIUM CHLORIDE 64 MG TABLET PO SCH (08:44)
[2017-09-16] MEDS: FUROSEMIDE 40 MG/4 ML VIAL IV SCH (08:46)
[2017-09-16] MEDS ORDERED: POLYETHYLENE GLYCOL POWDER 17 GM PACK PO SCH (09:00)
== END 2017-09-16 11:03 | disposition home or self-care (01) | DRG 291 ==
LOC: N.ED 19:36 → SUATTDRO 21:31 → N.EDINP 21:31 → N.TELEN 22:53
PROVIDERS: ADMIT Internal Medicine

== ENCOUNTER 2018-01-19 00:12 | Observation (INO) ==
[2018-01-19 01:26] LABS: Basophils % 0.3 % (0.0-0.8); Eosinophils # 0.5 10*3/uL (0.0-0.87); Eosinophils % 7.9 % (0.00-10.9); Hematocrit 29.5 VOL% (35.7-47.0); Immature Granulocytes % 0.6 %; Immature Granulocytes Absolute 0.04 #; Lymphocytes # 2.3 10*3/uL (1.4-4.0); Lymphocytes % 33.8 % (21.3-54.2); Mean Corpuscular HGB Conc 30.5 GM/DL (32-36); Mean Corpuscular Hemoglobin 28 PG (27-34); Mean Corpuscular Volume 90.5 FL (87-102); Monocytes # 0.8 10*3/uL (0.11-0.8); Neutrophils # 3.2 10*3/uL (1.4-7.4); Neutrophils % 46.4 % (38.7-73.9); Platelet Count 199 T/CUMM (130-400); Red Blood Count 3.26 MC/CUMM (3.8-5.5); Red Cell Distribution Width 13.4 % (9.3-17.3); White Blood Count 6.8 T/CUMM (4-12)
[2018-01-19 01:34] LABS: PT Patient Result 10.7 SECS
[2018-01-19 01:40] LABS: Alanine Aminotransferase 13 U/L (13-56); Albumin 2.9 G/DL (3.4-5.0); Alkaline Phosphatase 74 U/L (45-117); Aspartate Amino Transferase 13 U/L (0-37); Bilirubin,Total < 0.39 MG/DL (0.2-1.0); Blood Urea Nitrogen 12 MG/DL (7-18); Calcium 8.8 MG/DL (8.5-10.1); Glucose 157 MG/DL (74-106); Potassium 3.4 MMOL/L (3.5-5.1); Sodium 143 MMOL/L (136-145); Total Protein 7.6 G/DL (6.4-8.3)
[2018-01-19] MEDS ORDERED: diphenhydrAMINE CAP 25 MG CAPSULE PO PRN (03:41)
[2018-01-19] MEDS ORDERED: MAGNESIUM SULF RIDER 4 GM in PREMIX 1 EACH IV PRN (03:41)
[2018-01-19] MEDS ORDERED: ONDANSETRON 4 MG/2 ML VIAL IV PRN (03:41)
[2018-01-19] MEDS ORDERED: MAGNESIUM SULF RIDER 2 GM in PREMIX 1 EACH IV PRN (03:41)
[2018-01-19] MEDS ORDERED: MORPHINE 4 MG/1 ML VIAL IV PRN (03:41)
[2018-01-19] MEDS ORDERED: ACETAMINOPHEN 325 MG TABLET PO PRN (03:41)
[2018-01-19] MEDS ORDERED: NICOTINE 21 MG/24 HR PATCH TRANSDERM PRN (03:41)
[2018-01-19] MEDS ORDERED: ENOXAPARIN 40 MG/0.4 ML SYRINGE SUBCUT SCH (04:00)
[2018-01-19] MEDS ORDERED: DEXTROSE 50% 25 GM/50 ML VIAL IV PRN (04:11)
[2018-01-19] MEDS ORDERED: GLUCAGON 1 MG VIAL IM PRN (04:11)
[2018-01-19] MEDS ORDERED: ENOXAPARIN 100 MG/ML SYRINGE SUBCUT ONE (04:42)
[2018-01-19] MEDS ORDERED: ALUM/MAG/SIMETH/LIDO VISC 1:1 30 ML BOTTLE PO ONE (06:05)
[2018-01-19] MEDS: INSULIN REGULAR 100 UNIT/ML SUBCUT SCH ×4 (08:43→20:40)
[2018-01-19] MEDS ORDERED: PANTOPRAZOLE 40 MG TABLET PO SCH (09:00)
[2018-01-19] MEDS: PANTOPRAZOLE 40 MG TABLET PO SCH (20:36)
[2018-01-20] MEDS: MAGNESIUM CHLORIDE 64 MG TABLET PO SCH ×2 (09:32→20:41)
[2018-01-20] MEDS: ISOSORBIDE DINITRATE 10 MG TABLET PO SCH ×2 (09:33→20:40)
[2018-01-20] MEDS: PROMETHAZINE 25 MG TABLET PO SCH ×3 (09:34→20:40)
[2018-01-20] MEDS: POTASSIUM CHLORIDE 20 MEQ TABLET PO SCH (09:35)
[2018-01-20] MEDS: FUROSEMIDE 40 MG TABLET PO SCH (09:35)
[2018-01-20] MEDS: PANTOPRAZOLE 40 MG TABLET PO SCH ×2 (09:35→20:41)
[2018-01-20] MEDS: CARVEDILOL 6.25 MG TABLET PO SCH ×2 (09:36→20:41)
[2018-01-20] MEDS: INSULIN REGULAR 100 UNIT/ML SUBCUT SCH ×4 (10:13→20:41)
[2018-01-20] MEDS: PRAVASTATIN 20 MG TABLET PO SCH (10:13)
[2018-01-20] MEDS ORDERED: INSULIN GLARGINE 100 UNIT/ML SUBCUT SCH (21:00)
[2018-01-21] MEDS: PROMETHAZINE 25 MG TABLET PO SCH ×3 (02:07→15:17)
[2018-01-21 05:41] LABS: Basophils % 0.6 % (0.0-0.8); Eosinophils # 0.3 10*3/uL (0.0-0.87); Eosinophils % 6.4 % (0.00-10.9); Hematocrit 28.4 VOL% (35.7-47.0); Immature Granulocytes Absolute 0.05 #; Lymphocytes # 2.3 10*3/uL (1.4-4.0); Lymphocytes % 43.5 % (21.3-54.2); Mean Corpuscular HGB Conc 31.7 GM/DL (32-36); Mean Corpuscular Hemoglobin 28 PG (27-34); Mean Corpuscular Volume 88.2 FL (87-102); Mean Platelet Volume 9.6 FL (9.6-12.0); Monocytes # 0.6 10*3/uL (0.11-0.8); Monocytes % 10.6 % (1.7-12.7); Neutrophils % 37.9 % (38.7-73.9); Platelet Count 214 T/CUMM (130-400); Red Blood Count 3.22 MC/CUMM (3.8-5.5); Red Cell Distribution Width 13.2 % (9.3-17.3); White Blood Count 5.2 T/CUMM (4-12)
[2018-01-21 05:49] LABS: Calcium 8.9 MG/DL (8.5-10.1); Osmolality,Calculated 285.1 MOS/KG (273-304); Potassium 3.7 MMOL/L (3.5-5.1)
[2018-01-21 06:18] LABS: Band Neutrophils 1 % (0-10); Eosinophils 5 % (0-10); Hypochromasia 1+; Lymphocytes 44 % (20-55); Microcytosis 1+; Ovalocytes Slight; Segmented Neutrophils 46 % (50-85); Total Cells Counted 100
[2018-01-21 06:19] LABS: Platelet Estimate Normal
[2018-01-21] MEDS: INSULIN REGULAR 100 UNIT/ML SUBCUT SCH ×3 (08:26→16:54)
[2018-01-21] MEDS ORDERED: DULAGLUTIDE 0.75 MG SUBCUT SCH (08:33)
[2018-01-21] MEDS: ISOSORBIDE DINITRATE 10 MG TABLET PO SCH (09:17)
[2018-01-21] MEDS: CARVEDILOL 6.25 MG TABLET PO SCH (09:21)
[2018-01-21] MEDS: PANTOPRAZOLE 40 MG TABLET PO SCH (09:21)
[2018-01-21] MEDS: POTASSIUM CHLORIDE 20 MEQ TABLET PO SCH (09:21)
[2018-01-21] MEDS: FUROSEMIDE 40 MG TABLET PO SCH (09:21)
[2018-01-21] MEDS: MAGNESIUM CHLORIDE 64 MG TABLET PO SCH (09:21)
[2018-01-21] MEDS: PRAVASTATIN 20 MG TABLET PO SCH (09:31)
[2018-01-21 16:30] VITALS: BP 108/69
== END 2018-01-21 17:36 | disposition home or self-care (01) ==
LOC: EDUNIT# → N.EDINP 00:12 → N.ED 00:12 → SUATTDRO 03:41 → N.TELEN 04:09 → N.3E 01-20 16:05
PROVIDERS: ADMIT Hospitalist; ATTEND Internal Medicine